=== PATIENT | male | born 1960 | race Caucasian/White ===

== ENCOUNTER → 2017-07-16 10:32 | Outpatient (POV) | payer OTHER, SELFPAY ==
[2017-07-16 10:49] VITALS: BP 122/80; PULSE 81; RESP 18; O2SAT 98; BMI 26.1
--- NOTE | 2017-07-16 11:44 | P.CONS_ITS ---
[facility] Pain Management SOAP Note Subjective:: This patient is a very pleasant 57-year-old white male that returns her pain clinic today for follow-up visit. Patient reporting his lumbar back pain is 75 % better. He is describing some low back pain that is centrally located without radiculopathy symptoms. He describes the pain is slight, dull, aching. Patient reports the pain intensifies with flexion and extension. However, patient reports pain is much better than prior to the lumbar injections. We discussed a repeat of the lumbar medial branch blocks at some points month. This will be 3-4 months post radiofrequency ablation. He agrees. Patient continues taking Celebrex 100 mg daily. Objective:: She is awake alert oriented ?3. In no acute distress. Flexion extension lumbar spine somewhat guarded secondary to pain. Deep tendon reflexes upper and lower extremities normal. Motor strength upper and lower extremities normal. There is no gross sensory deficit. Gait is normal Assessment:: Degenerative disc disease lumbar spine with levels. Lumbar facet arthropathy. Lumbar spondylosis. Plan:: No changes at this time. He will continue with Celebrex 100 mg daily. We will seek approval for lumbar medial branch block L3-4, L4-5, L5-S1 bilateral some time next month
== END ==
PROVIDERS: PCP Family Medicine; Visit Provider Nurse Anesthetist, Certified Registered
DX: M51.16 Intervertebral disc disorders with radiculopathy, lumbar region (principal)
CPT/HCPCS: 99212

== ENCOUNTER → 2017-08-10 09:28 | Day surgery (SDC) | payer OTHER, SELFPAY ==
[2017-08-10 09:32] VITALS: BP 116/85; PULSE 80; RESP 18; TEMP 36.4; O2SAT 100; BMI 25.5
[2017-08-10 10:10] VITALS: BP 135/85; PULSE 78; RESP 18; O2SAT 98
--- NOTE | 2017-08-10 10:11 | P.PCN_ITS ---
- Procedure Date: 08/10/17 Time: 10:08 Anesthesiologist:: Tyler Shetty MD Complications:: None Pre-procedure Diagnosis:: Degenerative disease of lumbar spine with lumbar spondylosis and facet arthropathy Post-procedure Diagnosis:: Same Indications for Procedure:: This patient is a pleasant 57-year-old white male who we are treating for low back pain with lumbar spondylosis. He has had several medial branch blocks and a previous RFA. His pain is started to return his low back. We will do bilateral lumbar medial branch blocks of L3-L4, L4-5 and L5-S1 today to see if this gives him additional pain relief. Procedure Details:: Lumbar medial branch block Informed consent was obtained and the risks and benefits of the procedure was explained to the patient. The back was prepped using ChloraPrep. The skin and subcutaneous tissues were anesthetized using lidocaine. I placed 22-gauge spinal needles into the facet joint/medial branches of L3-L4, L4-L5 and L5-S1 bilaterally. Needle placement was confirmed with dye. After this we injected 3 mL bupivacaine 0.25% and Depo-Medrol 13 mg into each facet joint/medial branch of L3-L4, L5 and L5-S1 bilaterally. We used a total of 80 mg Depo- Medrol for all 3 levels bilaterally. The patient tolerated the procedure well with no complications. Plan and Disposition:: We will follow-up with this patient in 2 weeks. We will reevaluate his symptoms at that time. I do believe he may be a candidate for intrathecal therapy to give him long-term pain relief so he can adequately function at work.
[2017-08-10 10:13] VITALS: BP 140/90; PULSE 78; RESP 20; O2SAT 98
[2017-08-10 10:22] VITALS: BP 113/82; PULSE 71; RESP 18; TEMP 36.4; O2SAT 100
== END ==
PROVIDERS: Family Provider Family Medicine; PCP Family Medicine; Visit Provider Anesthesiology
DX: M51.36 Other intervertebral disc degeneration, lumbar region (principal); M47.896 Other spondylosis, lumbar region; M54.06 Panniculitis affecting regions of neck and back, lumbar region
CPT/HCPCS: 64493; 64494; 64495; J1030; Q9966

== ENCOUNTER → 2017-09-17 10:48 | Outpatient (POV) | payer OTHER, SELFPAY ==
[2017-09-17 10:55] VITALS: BP 118/79; PULSE 89; RESP 18; TEMP 36.6; O2SAT 98; BMI 26.6
--- NOTE | 2017-09-17 11:21 | HMH.PAINSOAP ---
[facility] Pain Management SOAP Note Subjective:: Patient is a pleasant 57-year-old white male who presents today for follow-up after his most recent medial branch block. Patient states he did receive 70% relief from his injections however his pain is beginning to return. Patient has tried multiple injective therapies along with ablations. Patient's tried anti-inflammatories and physical therapy. His pain a 6 out of 10 today. He states that the weather makes it worse. Patient is looking for more long-term solution to his pain. ROS General: no recent weight change, no fever, no sleep disturbances Respiratory: no cough, no shortness of air, no recurring pulmonary infections Cardiovascular/Peripheral Vascular: No chest pain, No palpitations, no edema, no shortness of breath. Gastrointestinal: no incontinence, normal bowel movements reported Genitourinary: no incontinence Musculoskeletal: Back pain, bilateral leg pain Psychiatric: normal mood/ affect, [denies depression], [denies anxiety] Neurological: [denies weakness in extremities], [denies balance issues] Objective:: Physical Exam General: Alert and oriented x3, no acute distress, pleasant and cooperative, [on room air] Lungs: Resps E/U, Symmetrical chest expansion, Eyes: PERRL Musculoskeletal: Flexion and extension of lumbar spine somewhat guarded secondary to pain, deep tendon reflexes normal, strength in upper and lower extremities [5/5], [abnormal gait noted] Neurological: speech clear, dictating machine typist equal, no gross sensory deficits Assessment:: Degenerative disc disease of the lumbar spine with lumbar spondylosis and facet arthropathy Plan:: The patient and I had a long discussion about intrathecal therapies. I believe that this patient would be a good candidate for pain pump trial. We discussed the need for a psychological evaluation. We also discussed the trial and implantation process. I answered the patient's questions. I want to see him back in 1 month to answer any additional questions. If he feels like he would like to move forward with this he can call our office and have a psychological evaluation referral sent. This note was dictated using voice recognition software and may contain errors or omissions
--- NOTE | 2017-09-17 11:25 | P.CONS_ITS ---
[facility] Pain Management SOAP Note Subjective:: Patient is a pleasant 57-year-old white male who presents today for follow-up after his most recent medial branch block. Patient states he did receive 70% relief from his injections however his pain is beginning to return. Patient has tried multiple injective therapies along with ablations. Patient's tried anti-inflammatories and physical therapy. His pain a 6 out of 10 today. He states that the weather makes it worse. Patient is looking for more long-term solution to his pain. ROS General: no recent weight change, no fever, no sleep disturbances Respiratory: no cough, no shortness of air, no recurring pulmonary infections Cardiovascular/Peripheral Vascular: No chest pain, No palpitations, no edema, no shortness of breath. Gastrointestinal: no incontinence, normal bowel movements reported Genitourinary: no incontinence Musculoskeletal: Back pain, bilateral leg pain Psychiatric: normal mood/ affect, [denies depression], [denies anxiety] Neurological: [denies weakness in extremities], [denies balance issues] Objective:: Physical Exam General: Alert and oriented x3, no acute distress, pleasant and cooperative, [ on room air] Lungs: Resps E/U, Symmetrical chest expansion, Eyes: PERRL Musculoskeletal: Flexion and extension of lumbar spine somewhat guarded secondary to pain, deep tendon reflexes normal, strength in upper and lower extremities [5/5], [abnormal gait noted] Neurological: speech clear, blow down operator equal, no gross sensory deficits Assessment:: Degenerative disc disease of the lumbar spine with lumbar spondylosis and facet arthropathy Plan:: The patient and I had a long discussion about intrathecal therapies. I believe that this patient would be a good candidate for pain pump trial. We discussed the need for a psychological evaluation. We also discussed the trial and implantation process. I answered the patient's questions. I want to see him back in 1 month to answer any additional questions. If he feels like he would like to move forward with this he can call our office and have a psychological evaluation referral sent. This note was dictated using voice recognition software and may contain errors or omissions
== END ==
PROVIDERS: Family Provider Family Medicine; PCP Family Medicine; Visit Provider Clinical Nurse Specialist Family Health
DX: M47.816 Spondylosis without myelopathy or radiculopathy, lumbar region (principal)
CPT/HCPCS: 99212

== ENCOUNTER → 2017-11-05 09:11 | Outpatient (POV) | payer OTHER, SELFPAY ==
[2017-11-05 09:36] VITALS: BP 122/81; PULSE 72; RESP 18; TEMP 36.8; BMI 25.8
--- NOTE | 2017-11-05 10:04 | HMH.PAINSOAP ---
[facility] Pain Management SOAP Note Subjective:: This patient is a pleasant 57-year-old white male who we are treating for low back pain with lumbar spondylosis and some lumbar radicular symptoms. He has had medial branch blocks and other injections. Injections are giving him good relief however is temporary. There are not long-lasting. He continues to have pain every day which is now limiting his activities of daily life. He is currently on Celebrex again was not helping. His last round of medial branch blocks gave him good relief for a short period of time. Most of his pain is in the back with occasional pain down his legs. He is failed all conservative therapy including injections and oral medications. He is not a surgical candidate. I believe he would be a good candidate for intrathecal therapy. I talked to him about intrathecal pump trial. I explained the risk and benefits and answered all questions. We will seek approval for intrathecal pump trial. Objective:: Alert and oriented ?3 in no acute distress. Patient has an antalgic gait. Motor strength of the lower extremities is 5/5. There is no gross sensory deficit. Assessment:: Degenerative disc disease of lumbar spine with lumbar spondylosis and lumbar radiculopathy symptoms. Plan:: This patient has failed all conservative therapy including injections now which are not long-lasting and oral medications. He has pain every day which is now limiting his activities of daily living. We will seek approval for intrathecal pump trial. I believe this will be a long-lasting treatment option to help with his pain management and allow increased activity.
== END ==
PROVIDERS: Family Provider Family Medicine; PCP Family Medicine; Visit Provider Anesthesiology
DX: M47.26 Other spondylosis with radiculopathy, lumbar region (principal)
CPT/HCPCS: 99212

== ENCOUNTER → 2017-12-24 14:36 | Outpatient (POV) | payer OTHER, SELFPAY ==
[2017-12-24 15:03] VITALS: BP 111/77; PULSE 74; RESP 18; O2SAT 98; BMI 25.8
--- NOTE | 2017-12-24 16:07 | HMH.PAINSOAP ---
[facility] Pain Management SOAP Note Subjective:: Patient is a pleasant 57-year-old white male who presents today for follow-up. Patient was set up for an intrathecal pain pump trial however patient states he does not believe he is ready for this at this time. Patient would like to continue with receiving medial branch blocks and taking his Duexis. Patient states he is doing all right with this at this time. Patient is not a surgical candidate and I still believe he would be a good candidate for intrathecal therapy. I answered his questions. Patient may be a candidate in the future. Patient states most of his pain is in his low back. ROS General: no recent weight change, no fever, no sleep disturbances Respiratory: no cough, no shortness of air, no recurring pulmonary infections Cardiovascular/Peripheral Vascular: No chest pain, No palpitations, no edema, no shortness of breath. Gastrointestinal: no incontinence, normal bowel movements reported Genitourinary: no incontinence Musculoskeletal: Back pain Psychiatric: normal mood/ affect Neurological: [denies weakness in extremities], [denies balance issues] Objective:: Physical Exam General: Alert and oriented x3, no acute distress, pleasant and cooperative, [on room air] Lungs: Resps E/U, Symmetrical chest expansion, Eyes: PERRL Musculoskeletal: Flexion and extension of lumbar spine somewhat guarded secondary to pain, deep tendon reflexes normal, strength in upper and lower extremities [5/5], antalgic gait noted, positive Kemps test lumbar spine Neurological: speech clear, sorting supervisor equal, no gross sensory deficits Assessment:: Degenerative disc disease of the lumbar spine with lumbar spondylosis and lumbar radiculopathy symptoms Plan:: We will schedule medial branch block at L3-L4 L4-L5 L5-S1 bilaterally. Patient states he gets 80 and 90% relief with these injections. Patient can continue taking his anti-inflammatories. Again I believe he still is a good candidate for intrathecal therapy in the future. This note was dictated using voice recognition software and may contain errors or omissions
--- NOTE | 2017-12-24 16:10 | P.CONS_ITS ---
[facility] Pain Management SOAP Note Subjective:: Patient is a pleasant 57-year-old white male who presents today for follow-up. Patient was set up for an intrathecal pain pump trial however patient states he does not believe he is ready for this at this time. Patient would like to continue with receiving medial branch blocks and taking his Duexis. Patient states he is doing all right with this at this time. Patient is not a surgical candidate and I still believe he would be a good candidate for intrathecal therapy. I answered his questions. Patient may be a candidate in the future. Patient states most of his pain is in his low back. ROS General: no recent weight change, no fever, no sleep disturbances Respiratory: no cough, no shortness of air, no recurring pulmonary infections Cardiovascular/Peripheral Vascular: No chest pain, No palpitations, no edema, no shortness of breath. Gastrointestinal: no incontinence, normal bowel movements reported Genitourinary: no incontinence Musculoskeletal: Back pain Psychiatric: normal mood/ affect Neurological: [denies weakness in extremities], [denies balance issues] Objective:: Physical Exam General: Alert and oriented x3, no acute distress, pleasant and cooperative, [ on room air] Lungs: Resps E/U, Symmetrical chest expansion, Eyes: PERRL Musculoskeletal: Flexion and extension of lumbar spine somewhat guarded secondary to pain, deep tendon reflexes normal, strength in upper and lower extremities [5/5], antalgic gait noted, positive Kemps test lumbar spine Neurological: speech clear, bituminous paving machine operator equal, no gross sensory deficits Assessment:: Degenerative disc disease of the lumbar spine with lumbar spondylosis and lumbar radiculopathy symptoms Plan:: We will schedule medial branch block at L3-L4 L4-L5 L5-S1 bilaterally. Patient states he gets 80 and 90% relief with these injections. Patient can continue taking his anti-inflammatories. Again I believe he still is a good candidate for intrathecal therapy in the future. This note was dictated using voice recognition software and may contain errors or omissions
== END ==
PROVIDERS: Family Provider Family Medicine; PCP Family Medicine; Visit Provider Clinical Nurse Specialist Family Health
DX: M54.16 Radiculopathy, lumbar region (principal)
CPT/HCPCS: 99212

== ENCOUNTER → 2018-02-04 10:24 | Outpatient (POV) | payer OTHER, SELFPAY ==
[2018-02-04 10:47] VITALS: BP 111/67; PULSE 78; RESP 18; O2SAT 98; BMI 25.9
--- NOTE | 2018-02-04 11:05 | HMH.PAINSOAP ---
[facility] Pain Management SOAP Note Subjective:: Patient is a pleasant 57-year-old white male who presents today to discuss intrathecal pain pump trial. Patient at last visit did not feel like he was ready for this. Patient did go through medial branch block however he states that he feels that he is ready now. Patient rates his pain 8 out of 10. I gave the patient the option of doing the intrathecal pain pump trial this Sunday however he has a trip planned. We will set him up for the next available time. Patient has most of his pain in his back. ROS General: no recent weight change, no fever, no sleep disturbances Respiratory: no cough, no shortness of air, no recurring pulmonary infections Cardiovascular/Peripheral Vascular: No chest pain, No palpitations, no edema, no shortness of breath. Gastrointestinal: no incontinence, normal bowel movements reported Genitourinary: no incontinence Musculoskeletal: Back pain Psychiatric: normal mood/ affect Neurological: [denies weakness in extremities], [denies balance issues] Objective:: Physical Exam General: Alert and oriented x3, no acute distress, pleasant and cooperative, [on room air] Lungs: Resps E/U, Symmetrical chest expansion, Eyes: PERRL Musculoskeletal: Flexion and extension of lumbar spine somewhat guarded secondary to pain, deep tendon reflexes normal, strength in upper and lower extremities [5/5], antalgic gait noted Neurological: speech clear, category development analyst equal, no gross sensory deficits Assessment:: Degenerative disc disease lumbar spine with lumbar spondylosis and lumbar radiculopathy symptoms Plan:: She has some concerns in regards to how big the intrathecal pain pump is. I discussed with him that he may find it beneficial to have the trial prior to making a decision. Patient will move forward with an intrathecal pain pump trial. This note was dictated using voice recognition software and may contain errors or omissions
--- NOTE | 2018-02-04 11:09 | P.CONS_ITS ---
[facility] Pain Management SOAP Note Subjective:: Patient is a pleasant 57-year-old white male who presents today to discuss intrathecal pain pump trial. Patient at last visit did not feel like he was ready for this. Patient did go through medial branch block however he states that he feels that he is ready now. Patient rates his pain 8 out of 10. I gave the patient the option of doing the intrathecal pain pump trial this Sunday however he has a trip planned. We will set him up for the next available time. Patient has most of his pain in his back. ROS General: no recent weight change, no fever, no sleep disturbances Respiratory: no cough, no shortness of air, no recurring pulmonary infections Cardiovascular/Peripheral Vascular: No chest pain, No palpitations, no edema, no shortness of breath. Gastrointestinal: no incontinence, normal bowel movements reported Genitourinary: no incontinence Musculoskeletal: Back pain Psychiatric: normal mood/ affect Neurological: [denies weakness in extremities], [denies balance issues] Objective:: Physical Exam General: Alert and oriented x3, no acute distress, pleasant and cooperative, [ on room air] Lungs: Resps E/U, Symmetrical chest expansion, Eyes: PERRL Musculoskeletal: Flexion and extension of lumbar spine somewhat guarded secondary to pain, deep tendon reflexes normal, strength in upper and lower extremities [5/5], antalgic gait noted Neurological: speech clear, cloth bolt bander equal, no gross sensory deficits Assessment:: Degenerative disc disease lumbar spine with lumbar spondylosis and lumbar radiculopathy symptoms Plan:: She has some concerns in regards to how big the intrathecal pain pump is. I discussed with him that he may find it beneficial to have the trial prior to making a decision. Patient will move forward with an intrathecal pain pump trial. This note was dictated using voice recognition software and may contain errors or omissions
== END ==
PROVIDERS: Family Provider Family Medicine; PCP Family Medicine; Visit Provider Clinical Nurse Specialist Family Health
DX: M51.16 Intervertebral disc disorders with radiculopathy, lumbar region (principal); M47.896 Other spondylosis, lumbar region
CPT/HCPCS: 99212

== ENCOUNTER → 2018-02-08 10:33 | Outpatient (POV) | payer MEDICARE, SELFPAY ==
[2018-02-08 10:55] VITALS: BP 143/90; PULSE 70; RESP 18; O2SAT 98; BMI 28.7
--- NOTE | 2018-02-08 11:38 | P.CONS_ITS ---
[facility] Pain Management SOAP Note Subjective:: This patient is a pleasant 57-year-old white male who we are treating for low back pain with lumbar radiculopathy symptoms as well as neck pain with cervical radiculopathy symptoms. Both of these are from the same injury at work according to the patient. He recently went to the emergency room with fevers. He had a urine culture which was positive for gram-positive cocci. He also had blood cultures taken at that time which are pending. He was told by the emergency room physician that this may be drug-induced fevers. I suspect he may also have a urinary tract infection. We will have him follow-up with his primary care physician. He has had previous medial branch blocks which gave him good pain relief for 3 weeks. He has had a previous radiofrequency ablation which gave him pain relief for approximately 6 weeks. We have discussed intrathecal therapy. The patient is not interested in pursuing intrathecal therapy at this time. His pain pattern has changed significantly where now he is having cramping and drawing of his left hand and arm. He also has significant pain radiating down his right leg with some weakness and numbness. His last MRI was 2 years ago. I feel that it is prudent to order new MRIs of his cervical lumbar spine to discern any change in pathology. We have also talked about revisiting neurosurgical consultation. We will also get him a back brace to help him with his pain symptoms. I have told him to stop ibuprofen and only take Tylenol to help with pain. Objective:: Alert and oriented ?3 in no acute distress. Patient does have an antalgic gait. Motor strength of the upper and lower extremities is 5/5. There is no gross sensory deficit at this time. He does have tenderness in the midline of the cervical spine and lumbar spine. He does have reduced range of motion of the cervical spine and lumbar spine. Assessment:: Degenerative disc disease of the cervical spine with cervical radiculopathy symptoms. Degenerative disc of lumbar spine with lumbar radiculopathy symptoms and lumbar spondylosis. Plan:: We will have this patient follow-up with his primary care physician concerning his blood cultures and urine culture. We will also order a new MRI of the cervical spine since this is been 2 years since his previous imaging and he has a change in symptoms with drawing of his left arm and hand and numbness and tingling with some occasional weakness down his right leg. We will also have him only take Tylenol to help with pain symptoms and stop his ibuprofen at this time. We will follow-up with him after his MRI.
== END ==
PROVIDERS: Family Provider Family Medicine; PCP Family Medicine; Visit Provider Anesthesiology
DX: M50.10 Cervical disc disorder with radiculopathy, unspecified cervical region (principal); M51.16 Intervertebral disc disorders with radiculopathy, lumbar region; M47.896 Other spondylosis, lumbar region
CPT/HCPCS: 99212

== ENCOUNTER → 2018-02-21 08:37 | Outpatient (CLI) | payer OTHER, SELFPAY ==
--- NOTE | 2018-02-21 08:39 | MR_ITS ---
MR lumbar spine wo con, MR 3-d myelogram/MRCP HISTORY: Low back pain with bilateral leg pain, numbness and tingling. PT also states left side pain. No prior surgery. ITS.REASON: BACK PAIN ORDERING PHYSICIAN: Telma Abdi PATIENT AGE: 57 years Comparison: 09/22/2015 TECHNIQUE: Standard multiplanar multiecho sequences are performed without contrast. 3-D MIP and myelographic images are also rendered and reviewed FINDINGS: There is normal alignment. Spinal cord ends at the L1 level. L1-L2 and L2-L3 have an unremarkable appearance. L3-L4: Minimal facet and ligamentum flavum hypertrophy L4-5: There is mild concentric bulging disc with a small left paracentral disc protrusion abutting the anterior aspect of the left L5 nerve root similar to the previous exam with left lateral recess narrowing and mild disc desiccation at that level. L5-S1: Mild degenerative disc disease with bulging disc and minimal central left paracentral disc protrusion without impingement. IMPRESSION: Overall no significant change in the mild degenerative disc disease and bulging disc with paracentral disc protrusions as described above at L4-5 and L5-S1. There is some mild impingement upon the left L5 nerve root at the L4-L5 level which does not appear significantly changed. No new findings
== END ==
PROVIDERS: Family Provider Family Medicine; PCP Family Medicine; Visit Provider Clinical Nurse Specialist Family Health
DX: M54.5 Low back pain (principal)
CPT/HCPCS: 72148; 76376

== ENCOUNTER → 2018-03-01 12:54 | Outpatient (POV) | payer MEDICARE, OTHER, SELFPAY ==
[2018-03-01 13:17] VITALS: BP 122/74; PULSE 76; RESP 18; O2SAT 96; BMI 25.7
--- NOTE | 2018-03-01 13:47 | HMH.PAINSOAP ---
[facility] Pain Management SOAP Note Subjective:: This patient is a pleasant 57-year-old white male who we have been seeing for low back pain with lumbar radicular symptoms as well as neck pain with cervical radicular symptoms. He is undergone several injections including epidural steroid injections and medial blocks. He has increasing low back pain with bilateral leg pain. He did get a new MRI of his lumbar spine which shows degenerative changes with paracentral disc protrusions at L4-L5 and L5-S1. There is some mild impingement upon the left L5 nerve root. This was overall not significantly change in his previous MRIs. Given his symptomology and the fact that he is failed all conservative treatment including physical therapy, medications and injections we have talked about other options including intrathecal therapy and spinal cord stimulation. The patient is not interested in intrathecal therapy however his does have a Nevro spinal cord stimulator. Would be interested in looking at spinal cord stimulation as a option to help him with his pain symptoms. Objective:: Alert and oriented x3 in no acute distress. The patient does have an antalgic gait. Motor strength of the lower extremities is 5/5. There is no gross sensory deficit. Assessment:: Degenerative disc disease of lumbar spine with lumbar radiculopathy symptoms and bulging disc Plan:: I have explained the risk and benefits and talked to the patient extensively about spinal cord stimulation. We will seek approval and plan on spinal cord stimulator trial with a Nevro system.
== END ==
PROVIDERS: Family Provider Family Medicine; PCP Family Medicine; Visit Provider Anesthesiology
DX: M51.16 Intervertebral disc disorders with radiculopathy, lumbar region (principal)
CPT/HCPCS: 99212

== ENCOUNTER → 2018-03-26 10:48 | Outpatient (POV) | payer OTHER, SELFPAY ==
[2018-03-26 10:57] VITALS: BP 110/68; PULSE 85; RESP 18; TEMP 36.7; O2SAT 97; BMI 26.6
--- NOTE | 2018-03-26 12:05 | HMH.PAINSOAP ---
[facility] Pain Management SOAP Note Subjective:: Patient is a 57-year-old white male who presents today for a mid trial follow-up for his neurostimulator. Patient states that during his trial he is having 60-80% relief of his symptoms. Patient is interested in going into implant. Patient states that he is much more functional with the stimulator. Patient states he needs no reprogramming today. ROS General: no recent weight change, no fever, no sleep disturbances Respiratory: no cough, no shortness of air, no recurring pulmonary infections Cardiovascular/Peripheral Vascular: No chest pain, No palpitations, no edema, no shortness of breath. Gastrointestinal: no incontinence, normal bowel movements reported Genitourinary: no incontinence Musculoskeletal: Back pain, leg pain Psychiatric: normal mood/ affect Neurological: [denies weakness in extremities], [denies balance issues] Objective:: Physical Exam General: Alert and oriented x3, no acute distress, pleasant and cooperative, [on room air] Lungs: Resps E/U, Symmetrical chest expansion, Eyes: PERRL Musculoskeletal: Flexion and extension of lumbar spine somewhat guarded secondary to pain, deep tendon reflexes normal, strength in upper and lower extremities [5/5], slightly antalgic gait noted Neurological: speech clear, fern gatherer equal, no gross sensory deficits Assessment:: Degenerative disc disease lumbar spine with lumbar radiculopathy Plan:: We will plan on moving towards an permanent trial for the patient. Patient denies any fevers. Patient states he is taking his Bactrim. Patient stimulator entrance site is under tape however there is no drainage noted. I will follow-up with the patient after his implant. This note was dictated using voice recognition software and may contain errors or omissions
--- NOTE | 2018-03-26 12:08 | P.CONS_ITS ---
[facility] Pain Management SOAP Note Subjective:: Patient is a 57-year-old white male who presents today for a mid trial follow-up for his neurostimulator. Patient states that during his trial he is having 60- 80% relief of his symptoms. Patient is interested in going into implant. Patient states that he is much more functional with the stimulator. Patient states he needs no reprogramming today. ROS General: no recent weight change, no fever, no sleep disturbances Respiratory: no cough, no shortness of air, no recurring pulmonary infections Cardiovascular/Peripheral Vascular: No chest pain, No palpitations, no edema, no shortness of breath. Gastrointestinal: no incontinence, normal bowel movements reported Genitourinary: no incontinence Musculoskeletal: Back pain, leg pain Psychiatric: normal mood/ affect Neurological: [denies weakness in extremities], [denies balance issues] Objective:: Physical Exam General: Alert and oriented x3, no acute distress, pleasant and cooperative, [on room air] Lungs: Resps E/U, Symmetrical chest expansion, Eyes: PERRL Musculoskeletal: Flexion and extension of lumbar spine somewhat guarded secondary to pain, deep tendon reflexes normal, strength in upper and lower extremities [5/5], slightly antalgic gait noted Neurological: speech clear, meat stocker equal, no gross sensory deficits Assessment:: Degenerative disc disease lumbar spine with lumbar radiculopathy Plan:: We will plan on moving towards an permanent trial for the patient. Patient denies any fevers. Patient states he is taking his Bactrim. Patient stimulator entrance site is under tape however there is no drainage noted. I will follow- up with the patient after his implant. This note was dictated using voice recognition software and may contain errors or omissions
== END ==
PROVIDERS: Family Provider Family Medicine; PCP Family Medicine; Visit Provider Clinical Nurse Specialist Family Health
DX: M51.16 Intervertebral disc disorders with radiculopathy, lumbar region (principal)
CPT/HCPCS: 99213

== ENCOUNTER → 2018-04-22 13:38 | Outpatient (POV) | payer OTHER, SELFPAY ==
[2018-04-22 14:14] VITALS: BP 125/79; PULSE 86; RESP 18; O2SAT 98; BMI 25.1
--- NOTE | 2018-04-23 08:40 | P.CONS_ITS ---
[facility] Pain Management SOAP Note Subjective:: Patient is a pleasant 57-year-old white male who presents today for follow-up after his neurostimulator implant. Patient rates his pain a 2 out of 10. Patient states that he gets up to 80% relief of his pain however he states he feels like he needs an adjustment. Patient has been doing well. Patient stitches are removed. Patient has no sign symptoms of infection. ROS General: no recent weight change, no fever, no sleep disturbances Respiratory: no cough, no shortness of air, no recurring pulmonary infections Cardiovascular/Peripheral Vascular: No chest pain, No palpitations, no edema, no shortness of breath. Gastrointestinal: no incontinence, normal bowel movements reported Genitourinary: no incontinence Musculoskeletal: Back pain, leg pain Psychiatric: normal mood/ affect Neurological: [denies weakness in extremities], [denies balance issues] Objective:: Physical Exam General: Alert and oriented x3, no acute distress, pleasant and cooperative, [on room air] Lungs: Resps E/U, Symmetrical chest expansion, Eyes: PERRL Musculoskeletal: Flexion and extension of lumbar spine somewhat guarded secondary to pain, deep tendon reflexes normal, strength in upper and lower extremities [5/5], normal gait noted Neurological: speech clear, health care analyst equal, no gross sensory deficits Assessment:: Degenerative disc disease lumbar spine with lumbar radiculopathy Plan:: We will follow-up with the patient in 1 month and reassess his symptoms at that time. Patient's been instructed to call the office if he has any issues prior to his next appointment. This note was dictated using voice recognition software and may contain errors or omissions
== END ==
PROVIDERS: Family Provider Family Medicine; PCP Family Medicine; Visit Provider Clinical Nurse Specialist Family Health
DX: M51.16 Intervertebral disc disorders with radiculopathy, lumbar region (principal)
CPT/HCPCS: 99213

== ENCOUNTER → 2018-05-27 10:43 | Outpatient (POV) | payer OTHER, SELFPAY ==
[2018-05-27 11:29] VITALS: BP 114/73; PULSE 94; RESP 18; O2SAT 98; BMI 31.3
--- NOTE | 2018-05-27 11:43 | HMH.PAINSOAP ---
[facility] Pain Management SOAP Note Subjective:: Patient is a pleasant 58-year-old white male who presents today for follow-up after neurostimulator implant. Patient rates his pain a 2 out of 10 and is doing well. Patient is completely healed. Patient states that he gets up to 80% relief with his stimulator. ROS General: no recent weight change, no fever, no sleep disturbances Respiratory: no cough, no shortness of air, no recurring pulmonary infections Cardiovascular/Peripheral Vascular: No chest pain, No palpitations, no edema, no shortness of breath. Gastrointestinal: no incontinence, normal bowel movements reported Genitourinary: no incontinence Musculoskeletal: Back pain, leg pain Psychiatric: normal mood/ affect Neurological: [denies weakness in extremities], [denies balance issues] Objective:: Physical Exam General: Alert and oriented x3, no acute distress, pleasant and cooperative, [on room air] Lungs: Resps E/U, Symmetrical chest expansion, Eyes: PERRL Musculoskeletal: Flexion and extension of lumbar spine somewhat guarded secondary to pain, deep tendon reflexes normal, strength in upper and lower extremities [5/5], normal gait noted Neurological: speech clear, rehab liaison equal, no gross sensory deficits Assessment:: Degenerative disc disease lumbar spine with lumbar radiculopathy Plan:: We will follow-up with the patient in 6 months and reassess his symptoms at that time. Patient has been instructed to call the office if he has any issues prior to this. This note was dictated using voice recognition software and may contain errors or omissions
== END ==
PROVIDERS: PCP Family Medicine; Visit Provider Clinical Nurse Specialist Family Health
DX: M51.16 Intervertebral disc disorders with radiculopathy, lumbar region (principal)
CPT/HCPCS: 99213

== ENCOUNTER → 2018-11-26 10:02 | Outpatient (POV) | payer OTHER, SELFPAY ==
[2018-11-26 10:33] VITALS: BP 130/84; PULSE 81; RESP 18; O2SAT 98; BMI 25.1
--- NOTE | 2018-11-26 10:44 | HMH.PAINSOAP ---
[facility] Pain Management SOAP Note Subjective:: Patient is a pleasant 58-year-old male who presents today for six-month follow-up. Patient rates his pain a 2 out of 10 and is doing well today we will follow-up with him in 6 months. ROS General: no recent weight change, no fever, no sleep disturbances Respiratory: no cough, no shortness of air, no recurring pulmonary infections Cardiovascular/Peripheral Vascular: No chest pain, No palpitations, no edema, no shortness of breath. Gastrointestinal: no incontinence, normal bowel movements reported Genitourinary: no incontinence Musculoskeletal: [Back pain, leg pain] Psychiatric: normal mood/ affect, [denies depression], [denies anxiety] Neurological: [denies weakness in extremities], [denies balance issues] Objective:: Physical Exam General: Alert and oriented x3, no acute distress, pleasant and cooperative, [on room air] Lungs: Resps E/U, Symmetrical chest expansion, Eyes: PERRL Musculoskeletal: Flexion and extension of lumbar spine somewhat guarded secondary to pain, deep tendon reflexes normal, strength in upper and lower extremities [5/5], normal gait noted. Neurological: speech clear, glost tile shader equal, no gross sensory deficits Assessment:: Degenerative disc disease lumbar spine with lumbar radiculopathy Plan:: We will follow-up with the patient in 6 months and reassess his symptoms at that time. Patient has been instructed to call the office if he has any issues prior to this. Dr. Shetty has reviewed this note and agrees with this plan of care. This note was dictated using voice recognition software and may contain errors or omissions
--- NOTE | 2018-11-26 10:48 | P.CONS_ITS ---
[facility] Pain Management SOAP Note Subjective:: Patient is a pleasant 58-year-old male who presents today for six-month follow- up. Patient rates his pain a 2 out of 10 and is doing well today we will follow-up with him in 6 months. ROS General: no recent weight change, no fever, no sleep disturbances Respiratory: no cough, no shortness of air, no recurring pulmonary infections Cardiovascular/Peripheral Vascular: No chest pain, No palpitations, no edema, no shortness of breath. Gastrointestinal: no incontinence, normal bowel movements reported Genitourinary: no incontinence Musculoskeletal: [Back pain, leg pain] Psychiatric: normal mood/ affect, [denies depression], [denies anxiety] Neurological: [denies weakness in extremities], [denies balance issues] Objective:: Physical Exam General: Alert and oriented x3, no acute distress, pleasant and cooperative, [on room air] Lungs: Resps E/U, Symmetrical chest expansion, Eyes: PERRL Musculoskeletal: Flexion and extension of lumbar spine somewhat guarded secondary to pain, deep tendon reflexes normal, strength in upper and lower extremities [5/5], normal gait noted. Neurological: speech clear, switch maker equal, no gross sensory deficits Assessment:: Degenerative disc disease lumbar spine with lumbar radiculopathy Plan:: We will follow-up with the patient in 6 months and reassess his symptoms at that time. Patient has been instructed to call the office if he has any issues prior to this. Dr. Shetty has reviewed this note and agrees with this plan of care. This note was dictated using voice recognition software and may contain errors or omissions
== END ==
PROVIDERS: Visit Provider Clinical Nurse Specialist Family Health
DX: M51.16 Intervertebral disc disorders with radiculopathy, lumbar region (principal)
CPT/HCPCS: 99212

== ENCOUNTER → 2019-04-22 09:01 | Outpatient (POV) | payer OTHER, SELFPAY ==
[2019-04-22 09:09] VITALS: BP 119/78; PULSE 87; RESP 18; O2SAT 99; BMI 25.1
--- NOTE | 2019-04-22 12:33 | HMH.PAINSOAP ---
[facility] Pain Management SOAP Note Subjective:: Patient is a 58-year-old white male who presents today for follow-up after removal of his neurostimulator by [facility]. Patient had his neurostimulator for over a year. Patient states that he had no issues until about 6 months postop. Patient states he had some swelling around the area that would come and go. Patient states that he was hospitalized for an infection. We did receive notes from [facility] all preliminary cultures were negative. We will continue to monitor this. He is not on antibiotics at this time. He has his last visit with infectious disease this month. Patient is uninterested in replanting a stimulator. He is uninterested in injection therapy at this point. Patient and I discussed medications. I discussed with him potentially a low-dose anti-inflammatory. ROS General: no recent weight change, no fever, no sleep disturbances Respiratory: no cough, no shortness of air, no recurring pulmonary infections Cardiovascular/Peripheral Vascular: No chest pain, No palpitations, no edema, no shortness of breath. Gastrointestinal: no new onset incontinence, normal bowel movements reported Genitourinary: no new onset incontinence Musculoskeletal: Back pain Psychiatric: normal mood/ affect Neurological: [denies new onset weakness in extremities], [denies new onset balance issues] Objective:: Physical Exam General: Alert and oriented x3, no acute distress, pleasant and cooperative, [on room air] Lungs: Resps E/U, Symmetrical chest expansion, Eyes: PERRL Musculoskeletal: Flexion and extension of lumbar spine somewhat guarded secondary to pain, deep tendon reflexes normal, strength in upper and lower extremities [5/5], slightly antalgic gait noted Neurological: speech clear, managing attorney equal, no gross sensory deficits Assessment:: Degenerative disc disease lumbar spine with lumbar radiculopathy Plan:: We will see the patient back in 1 month. We will start him on diclofenac 75 mg 1 p.o. twice daily. We will get the rest of the notes from [facility]. Dr. Shetty has reviewed this note and agrees with this plan of care. This note was dictated using voice recognition software and may contain errors or omissions [facility] History I have reviewed the patient's past medical history: Yes Medical History: Reports:: Gastroesophageal Reflux Disease(GERD), MRSA Denies:: Cancer, Diabetes Mellitus Type 1, Diabetes Mellitus Type 2, Internal Pacemaker, Seizures *Have you ever received a pneumonia vaccine?: No *Have you received a flu vaccine this season?: No Other Medical History: Denies: Blood Transfusion Reaction Laterality Cases: Left: Arthroscopy Knee, Right: Other Other Surgeries: Yes: Hernia Repair (inguinal). No: Pacemaker Amputation: No Fractures: No - *Social History Smoking Status: Former smoker Alcohol Intake: never *Occupational Status:: disabled Housing: house Household Members: spouse *Travel in the last 8 weeks: None Family Hx:: Cancer, Diabetes
--- NOTE | 2019-04-22 12:38 | P.CONS_ITS ---
[facility] Pain Management SOAP Note Subjective:: Patient is a 58-year-old white male who presents today for follow-up after removal of his neurostimulator by [facility]. Patient had his neurostimulator for over a year. Patient states that he had no issues until about 6 months postop. Patient states he had some swelling around the area that would come and go. Patient states that he was hospitalized for an infection. We did receive notes from [facility] all preliminary cultures were negative. We will continue to monitor this. He is not on antibiotics at this time. He has his last visit with infectious disease this month. Patient is uninterested in replanting a stimulator. He is uninterested in injection therapy at this point. Patient and I discussed medications. I discussed with him potentially a low-dose anti-inflammatory. ROS General: no recent weight change, no fever, no sleep disturbances Respiratory: no cough, no shortness of air, no recurring pulmonary infections Cardiovascular/Peripheral Vascular: No chest pain, No palpitations, no edema, no shortness of breath. Gastrointestinal: no new onset incontinence, normal bowel movements reported Genitourinary: no new onset incontinence Musculoskeletal: Back pain Psychiatric: normal mood/ affect Neurological: [denies new onset weakness in extremities], [denies new onset balance issues] Objective:: Physical Exam General: Alert and oriented x3, no acute distress, pleasant and cooperative, [on room air] Lungs: Resps E/U, Symmetrical chest expansion, Eyes: PERRL Musculoskeletal: Flexion and extension of lumbar spine somewhat guarded secondary to pain, deep tendon reflexes normal, strength in upper and lower extremities [5/5], slightly antalgic gait noted Neurological: speech clear, insurance defense paralegal equal, no gross sensory deficits Assessment:: Degenerative disc disease lumbar spine with lumbar radiculopathy Plan:: We will see the patient back in 1 month. We will start him on diclofenac 75 mg 1 p.o. twice daily. We will get the rest of the notes from [facility]. Dr. Shetty has reviewed this note and agrees with this plan of care. This note was dictated using voice recognition software and may contain errors or omissions [facility] History I have reviewed the patient's past medical history: Yes Medical History: Reports:: Gastroesophageal Reflux Disease(GERD), MRSA Denies:: Cancer, Diabetes Mellitus Type 1, Diabetes Mellitus Type 2, Internal Pacemaker, Seizures *Have you ever received a pneumonia vaccine?: No *Have you received a flu vaccine this season?: No Other Medical History: Denies: Blood Transfusion Reaction Laterality Cases: Left: Arthroscopy Knee, Right: Other Other Surgeries: Yes: Hernia Repair (inguinal). No: Pacemaker Amputation: No Fractures: No - *Social History Smoking Status: Former smoker Alcohol Intake: never *Occupational Status:: disabled Housing: house Household Members: spouse *Travel in the last 8 weeks: None Family Hx:: Cancer, Diabetes
== END ==
PROVIDERS: PCP Family Medicine; Visit Provider Clinical Nurse Specialist Family Health
DX: M51.16 Intervertebral disc disorders with radiculopathy, lumbar region (principal)
CPT/HCPCS: 99212

== ENCOUNTER → 2019-05-27 10:51 | Outpatient (POV) | payer OTHER, SELFPAY ==
[2019-05-27 10:59] VITALS: BP 95/72; PULSE 80; RESP 16; O2SAT 98; BMI 20.7
--- NOTE | 2019-05-27 11:39 | HMH.PAINSOAP ---
[facility] Pain Management SOAP Note Subjective:: Patient is a pleasant 59-year-old white male who presents today for follow-up. Patient had his neurostimulator removed. Patient states he is doing well rating his pain a 3 out of 10 he is having numbness and tingling in his toes. There is uninterested in any implantable devices however he would like to potentially begin him injections again. Patient is good to be seen by the infectious disease doctor tomorrow I discussed with him that we would need clearance prior to starting any kind injective therapy. Patient rates his pain today 3 out of 10 ROS General: no recent weight change, no fever, no sleep disturbances Respiratory: no cough, no shortness of air, no recurring pulmonary infections Cardiovascular/Peripheral Vascular: No chest pain, No palpitations, no edema, no shortness of breath. Gastrointestinal: no new onset incontinence, normal bowel movements reported Genitourinary: no new onset incontinence Musculoskeletal: Back pain, leg pain Psychiatric: normal mood/ affect, Neurological: [denies new onset weakness in extremities], [denies new onset balance issues] Objective:: Physical Exam General: Alert and oriented x3, no acute distress, pleasant and cooperative, [on room air] Lungs: Resps E/U, Symmetrical chest expansion, Eyes: PERRL Musculoskeletal: Flexion and extension of lumbar spine somewhat guarded secondary to pain, deep tendon reflexes normal, strength in upper and lower extremities [5/5], antalgic gait noted Neurological: speech clear, commercial construction project manager equal, no gross sensory deficits Assessment:: Degenerative disc disease lumbar spine with lumbar radiculopathy Plan:: We will get notes from Dr. Granados to determine the patient's clearance for injective therapy. The patient has been instructed to call our office if he would like to pursue injective therapy if he does we will set him up for an L4-L5 epidural injection. Dr. Shetty has reviewed this note and agrees with this plan of care. This note was dictated using voice recognition software and may contain errors or omissions [facility] History I have reviewed the patient's past medical history: Yes Medical History: Reports:: Gastroesophageal Reflux Disease(GERD), MRSA Denies:: Cancer, Diabetes Mellitus Type 1, Diabetes Mellitus Type 2, Internal Pacemaker, Seizures *Have you ever received a pneumonia vaccine?: No *Have you received a flu vaccine this season?: Yes Other Medical History: Denies: Blood Transfusion Reaction Laterality Cases: Left: Arthroscopy Knee, Right: Other Other Surgeries: Yes: Hernia Repair (inguinal). No: Pacemaker Amputation: No Fractures: No - *Social History Smoking Status: Former smoker Alcohol Intake: never *Occupational Status:: employed Housing: house Household Members: spouse *Travel in the last 8 weeks: None Family Hx:: Cancer, Diabetes
--- NOTE | 2019-05-27 11:42 | P.CONS_ITS ---
[facility] Pain Management SOAP Note Subjective:: Patient is a pleasant 59-year-old white male who presents today for follow-up. Patient had his neurostimulator removed. Patient states he is doing well rating his pain a 3 out of 10 he is having numbness and tingling in his toes. There is uninterested in any implantable devices however he would like to potentially begin him injections again. Patient is good to be seen by the infectious disease doctor tomorrow I discussed with him that we would need clearance prior to starting any kind injective therapy. Patient rates his pain today 3 out of 10 ROS General: no recent weight change, no fever, no sleep disturbances Respiratory: no cough, no shortness of air, no recurring pulmonary infections Cardiovascular/Peripheral Vascular: No chest pain, No palpitations, no edema, no shortness of breath. Gastrointestinal: no new onset incontinence, normal bowel movements reported Genitourinary: no new onset incontinence Musculoskeletal: Back pain, leg pain Psychiatric: normal mood/ affect, Neurological: [denies new onset weakness in extremities], [denies new onset balance issues] Objective:: Physical Exam General: Alert and oriented x3, no acute distress, pleasant and cooperative, [on room air] Lungs: Resps E/U, Symmetrical chest expansion, Eyes: PERRL Musculoskeletal: Flexion and extension of lumbar spine somewhat guarded secondary to pain, deep tendon reflexes normal, strength in upper and lower extremities [5/5], antalgic gait noted Neurological: speech clear, state fire marshal equal, no gross sensory deficits Assessment:: Degenerative disc disease lumbar spine with lumbar radiculopathy Plan:: We will get notes from Dr. Granados to determine the patient's clearance for injective therapy. The patient has been instructed to call our office if he would like to pursue injective therapy if he does we will set him up for an L4- L5 epidural injection. Dr. Shetty has reviewed this note and agrees with this plan of care. This note was dictated using voice recognition software and may contain errors or omissions [facility] History I have reviewed the patient's past medical history: Yes Medical History: Reports:: Gastroesophageal Reflux Disease(GERD), MRSA Denies:: Cancer, Diabetes Mellitus Type 1, Diabetes Mellitus Type 2, Internal Pacemaker, Seizures *Have you ever received a pneumonia vaccine?: No *Have you received a flu vaccine this season?: Yes Other Medical History: Denies: Blood Transfusion Reaction Laterality Cases: Left: Arthroscopy Knee, Right: Other Other Surgeries: Yes: Hernia Repair (inguinal). No: Pacemaker Amputation: No Fractures: No - *Social History Smoking Status: Former smoker Alcohol Intake: never *Occupational Status:: employed Housing: house Household Members: spouse *Travel in the last 8 weeks: None Family Hx:: Cancer, Diabetes
== END ==
PROVIDERS: PCP Family Medicine; Visit Provider Clinical Nurse Specialist Family Health
DX: M51.16 Intervertebral disc disorders with radiculopathy, lumbar region (principal)
CPT/HCPCS: 99212

== ENCOUNTER → 2019-11-17 14:51 | Outpatient (POV) | payer OTHER, SELFPAY ==
[2019-11-17 15:31] VITALS: BP 114/68; PULSE 81; RESP 18; TEMP 36.8; O2SAT 98; BMI 26.4
--- NOTE | 2019-11-18 08:32 | HMH.PAINSOAP ---
[facility] Pain Management SOAP Note Subjective:: Patient is a 59-year-old white male who presents today for follow-up. Patient has a neurostimulator removed. Patient states he is beginning to hurt worse in his lower back. He rates his pain a 4 out of 10. Patient is uninterested in having any additional neuro stimulation placed. Patient was cleared by his infectious disease doctor. Patient would like to move forward with injective therapy again. Patient had good relief with RFA's and medial branch blocks. Patient would like to repeat this. Most the patient's pain is in his low back and focal in nature. He has difficulty with twisting movements. Patient has been taking anti-inflammatories with no relief. ROS General: no recent weight change, no fever, no sleep disturbances Respiratory: no cough, no shortness of air, no recurring pulmonary infections Cardiovascular/Peripheral Vascular: No chest pain, No palpitations, no edema, no shortness of breath. Gastrointestinal: no new onset incontinence, normal bowel movements reported Genitourinary: no new onset incontinence Musculoskeletal: Back pain Psychiatric: normal mood/ affect Neurological: [denies new onset weakness in extremities], [denies new onset balance issues] Objective:: Physical Exam General: Alert and oriented x3, no acute distress, pleasant and cooperative, [on room air] Lungs: Resps E/U, Symmetrical chest expansion, Eyes: PERRL Musculoskeletal: Flexion and extension of lumbar spine somewhat guarded secondary to pain, deep tendon reflexes normal, strength in upper and lower extremities [5/5], slightly antalgic gait noted Neurological: speech clear, renewals specialist equal, no gross sensory deficits Assessment:: 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 Patient understands at this is diagnostic in nature he is a neurotomy candidate. He is not on any anticoagulation therapy. I will follow-up with him after his injection reassess his symptoms at that time he has been instructed to call the office if he has any issues prior to his next appointment. Dr. Shetty has reviewed this note and agrees with this plan of care. This note was dictated using voice recognition software and may contain errors or omissions [facility] History I have reviewed the patient's past medical history: Yes Medical History: Reports:: Gastroesophageal Reflux Disease(GERD), MRSA Denies:: Cancer, Diabetes Mellitus Type 1, Diabetes Mellitus Type 2, Internal Pacemaker, Seizures *Have you ever received a pneumonia vaccine?: Yes *Have you received a flu vaccine this season?: Yes Other Medical History: Denies: Blood Transfusion Reaction Laterality Cases: Left: Arthroscopy Knee, Right: Other Other Surgeries: Yes: Hernia Repair (inguinal). No: Pacemaker Amputation: No Fractures: No - *Social History Smoking Status: Former smoker Alcohol Intake: never *Occupational Status:: other Housing: house Household Members: spouse *Travel in the last 8 weeks: None Family Hx:: Cancer, Diabetes
== END ==
PROVIDERS: PCP Family Medicine; Visit Provider Clinical Nurse Specialist Family Health
DX: M51.36 Other intervertebral disc degeneration, lumbar region (principal); M47.816 Spondylosis without myelopathy or radiculopathy, lumbar region; M54.06 Panniculitis affecting regions of neck and back, lumbar region
CPT/HCPCS: 99212

== ENCOUNTER 2019-12-05 09:10 | Day surgery (SDC) | payer OTHER, SELFPAY ==
[2019-12-05 09:36] VITALS: BP 117/74; PULSE 78; RESP 18; TEMP 35.9; O2SAT 99; BMI 26.6
[2019-12-05 10:16] VITALS: BP 111/74; PULSE 75; RESP 18; O2SAT 99
[2019-12-05 10:19] VITALS: BP 115/85; PULSE 75; RESP 18; O2SAT 98
[2019-12-05 10:37] VITALS: BP 137/79; PULSE 62; RESP 18; O2SAT 99
--- NOTE | 2019-12-05 11:27 | HMH.PMPROC ---
- Procedure Date: 12/05/19 Time: 11:27 Anesthesiologist:: Tyler Shetty MD Complications:: None Pre-procedure Diagnosis:: Degenerative disc disease of lumbar spine with lumbar spondylosis and facet arthropathy of lumbar spine. Post-procedure Diagnosis:: Same Indications for Procedure:: Patient is a pleasant 59-year-old white male who we have been treating for low back pain with lumbar radicular symptoms. He did have a Nevro cord stimulator which was removed for suspected infection. He did have good pain relief for approximately 3 months after removal of his stimulator however now his pain is returning. He has had previous RFA's of lumbar facet joints in the past which gave him significant relief. Pain is returned in the back and also he does have some pain down into his right foot. We will do lumbar medial branch block/facet joint injections of L3-L4 and L4-5 and L5-S1 today to see if this gives him relief of his pain symptoms. Procedure Details:: Lumbar medial branch block Informed consent was obtained and the risks and benefits of the procedure was explained to the patient. The back was prepped using ChloraPrep. The skin and subcutaneous tissues were anesthetized using lidocaine. I placed 22-gauge spinal needles into the facet joint/medial branches of L3-L4, L4-L5 and L5-S1 bilaterally. Needle placement was confirmed with dye. After this we injected 3 mL bupivacaine 0.25% and Depo-Medrol 13 mg into each facet joint/medial branch of L3-L4, L4-L5 and L5-S1 bilaterally. We used a total of 80 mg Depo-Medrol for all 3 levels bilaterally. The patient tolerated the procedure well with no complications. Plan and Disposition:: We will follow-up with him in 2 weeks. Will reevaluate symptoms at that time.
== END 2019-12-05 10:39 | disposition home or self-care (01) ==
LOC: SC.PAINP 09:12
PROVIDERS: PCP Family Medicine; Visit Provider Anesthesiology
DX: M51.36 Other intervertebral disc degeneration, lumbar region (principal); M47.816 Spondylosis without myelopathy or radiculopathy, lumbar region; M12.88 Other specific arthropathies, not elsewhere classified, other specified site; I10 Essential (primary) hypertension; Z79.899 Other long term (current) drug therapy; Z91.013 Allergy to seafood
CPT/HCPCS: 64493; 64494; 64495; J1030; Q9966

== ENCOUNTER → 2019-12-29 13:13 | Outpatient (POV) | payer OTHER, SELFPAY ==
--- NOTE | 2019-12-29 13:23 | P.CONS_ITS ---
[facility] Pain Management SOAP Note Subjective:: Patient is a pleasant 59-year-old white male who we are treating for low back pain with lumbar radiculopathy. He has had his Nevro stimulator removed. Patient is following up after medial branch block. Patient got 90% relief of his symptomology he still having pain relief he rates his pain a 3 out of 10. He would like to repeat this in about 6 weeks. He is not on any anticoagulation therapy. He does not want any pills stating that he has had ulcers in the past. ROS General: no recent weight change, no fever, no sleep disturbances Respiratory: no cough, no shortness of air, no recurring pulmonary infections Cardiovascular/Peripheral Vascular: No chest pain, No palpitations, no edema, no shortness of breath. Gastrointestinal: no new onset incontinence, normal bowel movements reported Genitourinary: no new onset incontinence Musculoskeletal: Back pain Psychiatric: normal mood/ affect Neurological: [denies new onset weakness in extremities], [denies new onset balance issues] Objective:: Physical Exam General: Alert and oriented x3, no acute distress, pleasant and cooperative, [on room air] Lungs: Resps E/U, Symmetrical chest expansion, Eyes: PERRL Musculoskeletal: Flexion and extension of lumbar spine somewhat guarded secondary to pain, deep tendon reflexes normal, strength in upper and lower extremities [5/5], slightly antalgic gait noted, positive facet loading lumbar spine Neurological: speech clear, digital sales director equal, no gross sensory deficits Assessment:: Degenerative disc disease lumbar spine lumbar facet arthropathy lumbar spondylosis Plan:: We will schedule the patient for an L3-L4 L4-L5 L5-S1 bilateral medial branch block in 6 weeks. Patient's been instructed to call the office if he has any issues prior to his next appointment. I will follow-up with him after this. Patient and I also discussed potential neurotomy in the future. He is had this in the past with good relief. He is uninterested in this at this time. Dr. Shetty has reviewed this note and agrees with this plan of care. This note was dictated using voice recognition software and may contain errors or omissions [facility] History I have reviewed the patient's past medical history: Yes Medical History: Reports:: Gastroesophageal Reflux Disease(GERD), MRSA Denies:: Cancer, Diabetes Mellitus Type 1, Diabetes Mellitus Type 2, Internal Pacemaker, Seizures *Have you ever received a pneumonia vaccine?: No *Have you received a flu vaccine this season?: No Other Medical History: Denies: Blood Transfusion Reaction Laterality Cases: Left: Arthroscopy Knee, Right: Other Other Surgeries: Yes: Hernia Repair (inguinal). No: Pacemaker Amputation: No Fractures: No - *Social History Smoking Status: Former smoker Alcohol Intake: never *Occupational Status:: employed Housing: house Household Members: spouse *Travel in the last 8 weeks: None Family Hx:: Cancer, Diabetes
[2019-12-29 13:24] VITALS: BP 185/81; PULSE 118; RESP 18; TEMP 36.8; O2SAT 98; BMI 34.0
== END ==
PROVIDERS: PCP Family Medicine; Visit Provider Clinical Nurse Specialist Family Health
DX: M51.36 Other intervertebral disc degeneration, lumbar region (principal); M12.88 Other specific arthropathies, not elsewhere classified, other specified site; M47.816 Spondylosis without myelopathy or radiculopathy, lumbar region
CPT/HCPCS: 99212

== ENCOUNTER 2020-01-23 11:27 | Day surgery (SDC) | payer OTHER, SELFPAY ==
[2020-01-23 11:41] VITALS: BP 126/80; PULSE 73; RESP 18; TEMP 36.5; O2SAT 98; BMI 26.6
[2020-01-23 12:36] VITALS: BP 114/75; BP 115/78; PULSE 69; PULSE 70; RESP 18; O2SAT 99
--- NOTE | 2020-01-23 12:42 | P.PCN_ITS ---
- Procedure Date: 01/23/20 Time: 12:42 Anesthesiologist:: Tyler Shetty MD Complications:: None Pre-procedure Diagnosis:: Degenerative disc disease of lumbar spine with lumbar spondylosis and facet arthropathy of lumbar spine Post-procedure Diagnosis:: Same Indications for Procedure:: This patient is a pleasant 59-year-old white male who we are treating for low back pain with lumbar spondylosis and facet arthropathy. He got great relief from his last round of medial branch blocks he was 80 to 90% better for several weeks. His pain is now starting to return. We will do repeat bilateral lumbar medial branch block/facet joint injections of L3-L4, L4-5 and L5-S1 today. Procedure Details:: Lumbar medial branch block Informed consent was obtained and the risks and benefits of the procedure was explained to the patient. The back was prepped using ChloraPrep. The skin and subcutaneous tissues were anesthetized using lidocaine. I placed 22-gauge spina l needles into the facet joint/medial branches of L3-L4, L4-L5 and L5-S1 bilaterally. Needle placement was confirmed with dye. After this we injected 3 mL bupivacaine 0.25% and Depo-Medrol 13 mg into each facet joint/medial branch of L3-L4, L5 and L5-S1 bilaterally. We used a total of 80 mg Depo-Medrol for all 3 levels bilaterally. The patient tolerated the procedure well with no complications. Plan and Disposition:: We will follow-up with him in 2 weeks. Will reevaluate symptoms at that time. If successful we will plan on radiofrequency ablation to the same levels of L3- L4, L4-5 and L5-S1 bilaterally.
[2020-01-23 12:46] VITALS: BP 115/75; PULSE 59; RESP 18; O2SAT 98
== END 2020-01-23 12:48 | disposition home or self-care (01) ==
LOC: SC.PAINP 11:28
PROVIDERS: PCP Family Medicine; Visit Provider Anesthesiology
DX: M51.36 Other intervertebral disc degeneration, lumbar region (principal); M47.816 Spondylosis without myelopathy or radiculopathy, lumbar region; M12.88 Other specific arthropathies, not elsewhere classified, other specified site
CPT/HCPCS: 64493; 64494; 64495; J1030; Q9966

== ENCOUNTER → 2020-02-09 13:32 | Outpatient (POV) | payer OTHER, SELFPAY ==
[2020-02-09 14:13] VITALS: BP 135/88; PULSE 77; RESP 18; O2SAT 98; BMI 26.6
--- NOTE | 2020-02-09 14:37 | HMH.PAINSOAP ---
[facility] Pain Management SOAP Note Subjective:: Is a pleasant 59-year-old white male who presents today for follow-up after his lumbar medial branch block. Patient got 90% relief from his medial branch block at L3-L4 L4-L5 L5-S1 bilaterally. This is his second medial branch block. He is a candidate for rhizotomy. Patient rates his pain a 3 out of 10 today. He is much more functional after his injection therapy. He is not on any anticoagulation therapy. He would like to move forward with radiofrequency ablation of these levels. ROS General: no recent weight change, no fever, no sleep disturbances Respiratory: no cough, no shortness of air, no recurring pulmonary infections Cardiovascular/Peripheral Vascular: No chest pain, No palpitations, no edema, no shortness of breath. Gastrointestinal: no new onset incontinence, normal bowel movements reported Genitourinary: no new onset incontinence Musculoskeletal: Back pain Psychiatric: normal mood/ affect Neurological: [denies new onset weakness in extremities], [denies new onset balance issues] Objective:: Physical Exam General: Alert and oriented x3, no acute distress, pleasant and cooperative, [on room air] Lungs: Resps E/U, Symmetrical chest expansion, Eyes: PERRL Musculoskeletal: Flexion and extension of lumbar spine somewhat guarded secondary to pain, deep tendon reflexes normal, strength in upper and lower extremities [5/5], slightly antalgic gait noted Neurological: speech clear, dirt supervisor equal, no gross sensory deficits Assessment:: Degenerative disc disease lumbar spine with lumbar spondylosis facet arthropathy lumbar spine Plan:: We will go in for radiofrequency ablation. We will start with the right side at L3-L4 L4-L5 L5-S1 and then do the left side 2 weeks later at L3-L4 L4-5 L5-S1. Patient is gotten good relief with his medial branch blocks. I will follow-up with him after this reassess his symptoms at that time he has been instructed to call the office if he has any issues prior to his next appointment. He is not on any anticoagulation therapy. He is tried and failed anti-inflammatories. Dr. Shetty has reviewed this note and agrees with this plan of care. This note was dictated using voice recognition software and may contain errors or omissions [facility] History I have reviewed the patient's past medical history: Yes Medical History: Reports:: Gastroesophageal Reflux Disease(GERD) Denies:: Cancer, Diabetes Mellitus Type 1, Diabetes Mellitus Type 2, Internal Pacemaker, MRSA, Seizures *Have you ever received a pneumonia vaccine?: Yes *Have you received a flu vaccine this season?: Yes Other Medical History: Denies: Blood Transfusion Reaction Laterality Cases: Left: Arthroscopy Knee, Right: Other Other Surgeries: Yes: Hernia Repair (inguinal). No: Pacemaker Amputation: No Fractures: No - *Social History Smoking Status: Former smoker Alcohol Intake: current Alcohol Intake Frequency:: holidays/special occasions only *Occupational Status:: other Housing: house Household Members: spouse *Travel in the last 8 weeks: None Family Hx:: Cancer, Diabetes
== END ==
PROVIDERS: PCP Family Medicine; Visit Provider Clinical Nurse Specialist Family Health
DX: M51.36 Other intervertebral disc degeneration, lumbar region (principal); M47.816 Spondylosis without myelopathy or radiculopathy, lumbar region; M12.88 Other specific arthropathies, not elsewhere classified, other specified site
CPT/HCPCS: 99212

== ENCOUNTER 2020-02-27 09:14 | Day surgery (SDC) | payer OTHER, SELFPAY ==
[2020-02-27 09:20] VITALS: BP 114/81; PULSE 72; RESP 18; TEMP 36.4; O2SAT 98; BMI 26.6
[2020-02-27 09:49] VITALS: BP 142/85; PULSE 87; RESP 18
[2020-02-27 09:50] VITALS: BP 138/78; PULSE 77; RESP 18; O2SAT 99
[2020-02-27 10:09] VITALS: BP 113/73; PULSE 77; RESP 18; O2SAT 98
--- NOTE | 2020-02-27 10:09 | HMH.PMPROC ---
- Procedure Date: 02/27/20 Time: 10:10 Anesthesiologist:: Tyler Shetty MD Complications:: None Pre-procedure Diagnosis:: Degenerative disc disease of lumbar spine with lumbar spondylosis and facet arthropathy of lumbar spine Post-procedure Diagnosis:: Same Indications for Procedure:: This patient is a pleasant 59-year-old white male who we are treating for low back pain with lumbar spondylosis and facet arthropathy of lumbar spine. He got significant relief from medial branch blocks about 90% from medial branch block injection/facet joint injections of L3-L4, 4 5 and L5-S1 bilaterally. His pain is just now starting to return. We will do radiofrequency ablation of the facet joints of L3-L4, L4-5 and L5-S1 starting with the right side today. Procedure Details:: Lumbar RFA informed consent was obtained and the risk and benefits of the procedure was explained to the patient. Patient was placed prone on the procedure table. The patient was prepped and draped in sterile fashion. C-arm fluoroscopy was used to view the lumbar spine. The skin and subcutaneous tissues were anesthetized using lidocaine. I placed 20-gauge RF needles into the facet joints of L3-L4, L4-5 and L5-S1 levels on the right side. We underwent sensory stimulation. There is good sensory stimulation at 0.8 V. We underwent motor stimulation. There is no motor stimulation at 2 V. We then anesthetized these levels with lidocaine and Depo-Medrol. I used a total of 40 mg Depo-Medrol for all 3 levels. I then burned all 3 levels of L3-L4, 4 5 and L5-S1 facet joint/medial branches on the right side each one for 4 minutes at 80 ?C. Patient tolerated the procedure well with no complication. Plan and Disposition:: We will follow-up with him in 2 weeks we will reevaluate symptoms at that time. We will plan on RF ablation of the facet joint/medial branches of L3-L4, L4 5 and L5-S1 left side.
== END 2020-02-27 10:10 | disposition home or self-care (01) ==
LOC: SC.PAINP 09:15
PROVIDERS: PCP Family Medicine; Visit Provider Anesthesiology
DX: M51.36 Other intervertebral disc degeneration, lumbar region (principal); M47.816 Spondylosis without myelopathy or radiculopathy, lumbar region; M12.88 Other specific arthropathies, not elsewhere classified, other specified site; I10 Essential (primary) hypertension; G43.909 Migraine, unspecified, not intractable, without status migrainosus; Z87.39 Personal history of other diseases of the musculoskeletal system and connective tissue; Z79.899 Other long term (current) drug therapy
CPT/HCPCS: 64635; 64636; J1040

== ENCOUNTER 2020-03-12 09:18 | Day surgery (SDC) | payer OTHER, SELFPAY ==
[2020-03-12 09:38] VITALS: BP 101/67; PULSE 64; RESP 18; TEMP 36.6; O2SAT 98; BMI 26.6
[2020-03-12 10:41] VITALS: BP 132/80; PULSE 79; RESP 18; O2SAT 98
[2020-03-12 10:42] VITALS: BP 133/84; PULSE 80; RESP 18; O2SAT 99
[2020-03-12 11:04] VITALS: BP 129/88; PULSE 73; RESP 18; O2SAT 98
--- NOTE | 2020-03-12 11:55 | HMH.PMPROC ---
- Procedure Date: 03/12/20 Time: 11:55 Anesthesiologist:: Tyler Shetty MD Complications:: None Pre-procedure Diagnosis:: Generative disc disease of the lumbar spine with lumbar spondylosis and facet arthropathy of lumbar spine Post-procedure Diagnosis:: Same Indications for Procedure:: This patient is a pleasant 59-year-old white male who we are treating for low back pain with lumbar spondylosis and facet arthropathy of lumbar spine. He is done very well with RF ablation to the facet joints of L3-4, L4-5 and L5-S1 on the right side. He presents for RF ablation to the facet joints at the same levels on the left side today. Procedure Details:: Lumbar RFA informed consent was obtained and the risk and benefits of the procedure was explained to the patient. Patient was placed prone on the procedure table. The patient was prepped and draped in sterile fashion. C-arm fluoroscopy was used to view the lumbar spine. The skin and subcutaneous tissues were anesthetized using lidocaine. I placed 20-gauge RF needles into the facet joints of L3-4, L4-5 and L5-S1 levels on the left side. We underwent sensory stimulation. There is good sensory stimulation at 0.8 V. We underwent motor stimulation. There is no motor stimulation at 2 V. We then anesthetized these levels with lidocaine and Depo-Medrol. I used a total of 40 mg Depo-Medrol for both levels. I then burned both levels of L3-4, L4-5 and L5-S1 on the left side facet joint/medial branches for 4 minutes at 80 ?C. Patient tolerated the procedure well with no complication. Plan and Disposition:: We will follow-up with him in 2 weeks. Will reevaluate symptoms at that time.
== END 2020-03-12 11:05 | disposition home or self-care (01) ==
LOC: SC.PAINP 09:20
PROVIDERS: PCP Family Medicine; Visit Provider Anesthesiology
DX: M51.36 Other intervertebral disc degeneration, lumbar region (principal); M47.816 Spondylosis without myelopathy or radiculopathy, lumbar region; M12.88 Other specific arthropathies, not elsewhere classified, other specified site; K21.9 Gastro-esophageal reflux disease without esophagitis; Z82.49 Family history of ischemic heart disease and other diseases of the circulatory system; Z87.39 Personal history of other diseases of the musculoskeletal system and connective tissue; Z79.899 Other long term (current) drug therapy; Z91.013 Allergy to seafood
CPT/HCPCS: 64635; 64636; J1040

== ENCOUNTER → 2020-04-01 10:09 | Outpatient (POV) | payer OTHER, SELFPAY ==
--- NOTE | 2020-04-01 11:02 | HMH.PAINSOAP ---
[facility] Pain Management SOAP Note Subjective:: Patient is a 59-year-old white male who presents today for follow-up after RFA at L3-L4 L4-L5 and L5-S1. Patient is being treated for chronic low back pain with lumbar spondylosis and facet arthropathy lumbar spine. Patient rates his pain a 3 out of 10 today. Patient says he got approximately 80% relief with the RFA. Patient did have a spinal cord stimulator in the past that had to removed secondary to infection. Patient says since having these stimulator removed, he has continued with injections. He does not want to do oral opiates. Patient says overall he does well with the injections. Review of Systems General: No recent weight changes, no fever, no sleep disturbances Respiratory: No cough, no shortness of air, no recurring pulmonary infections Cardiovascular/peripheral vascular: No chest pain, no palpitations, no edema, no shortness of breath Gastrointestinal: No new onset incontinence, normal bowel movements reported Genitourinary: No new onset incontinence Musculoskeletal: Low back pain worse with bending forward Psychiatric: Normal mood/affect Neurological: [Denies weakness in extremities], [denies balance issues] Objective:: Physical exam General: Alert and oriented x3, no acute distress, pleasant and cooperative, [on room air] Lungs: Respirations even and unlabored, symmetrical chest expansion Eyes: PERRL Musculoskeletal: Flexion and extension of lumbar spine somewhat guarded secondary to pain, deep tendon reflexes normal, strength in upper and lower extremities [5/5], [abnormal gait noted] positive Kemps test Neurological: Speech clear, accounting assistant equal, no gross sensory deficit Assessment:: Degenerative disc disease lumbar spine with lumbar spondylosis and facet arthropathy lumbar spine Plan:: Overall, the patient is doing well since having his RFA. We will plan to see the patient back in the clinic in 3 months to reassess his symptoms. Patient has been instructed to contact clinic if he has any concerns before his next appointment. The patient and I specifically discussed risk factors for COVID19. These risks include, but are not limited to age greater than 60, heart or lung disease, diabetes, immunosuppression, and travel. We also discussed NSAIDs may worsen COVID19 infection or symptoms. Patient should not use NSAIDs to treat COVID19 signs or symptoms. Patient was also informed that any type of corticosteroid of any form (oral or injection) will decrease the patient's immune system response and may increase the likelihood of COVID19 infection [address] symptoms[address] Shetty has reviewed this note and agrees with this plan of care. This note was dictated using voice recognition software and make contain errors or omissions. [facility] History I have reviewed the patient's past medical history: Yes Medical History: Reports:: Gastroesophageal Reflux Disease(GERD) Denies:: Cancer, Diabetes Mellitus Type 1, Diabetes Mellitus Type 2, Internal Pacemaker, MRSA, Seizures *Have you ever received a pneumonia vaccine?: No *Have you received a flu vaccine this season?: No Other Medical History: Denies: Blood Transfusion Reaction Laterality Cases: Left: Arthroscopy Knee, Right: Arthroscopy Shoulder, Other Other Surgeries: Yes: Hernia Repair (inguinal). No: Pacemaker Amputation: No Fractures: No - *Social History Smoking Status: Former smoker Alcohol Intake: current Alcohol Intake Frequency:: a few times a month *Occupational Status:: retired Housing: house Household Members: spouse *Travel in the last 8 weeks: None Family Hx:: Cancer, Diabetes
[2020-04-01 11:06] VITALS: BP 129/85; PULSE 91; RESP 18; O2SAT 98; BMI 26.2
== END ==
PROVIDERS: Visit Provider Clinical Nurse Specialist Family Health
DX: M51.36 Other intervertebral disc degeneration, lumbar region (principal); M47.816 Spondylosis without myelopathy or radiculopathy, lumbar region; M12.88 Other specific arthropathies, not elsewhere classified, other specified site
CPT/HCPCS: 99212

== ENCOUNTER → 2020-07-05 10:46 | Outpatient (POV) | payer OTHER, SELFPAY ==
[2020-07-05 11:07] VITALS: BP 132/77; PULSE 74; RESP 18; O2SAT 98; BMI 26.6
--- NOTE | 2020-07-05 12:30 | HMH.PAINSOAP ---
[facility] Pain Management SOAP Note Subjective:: Patient is a pleasant 60-year-old white male who presents today for follow-up. Patient had an RFA with about 3 months of relief. He rates his pain a 4 out of 10 today. Patient wants to discuss medication regimens. He is tried multiple medications including Lyrica, Elavil, Cymbalta. He is unable to take diclofenac due to his stomach. We discussed potential gabapentin he has not tried this recently. ROS General: no recent weight change, no fever, no sleep disturbances Respiratory: no cough, no shortness of air, no recurring pulmonary infections Cardiovascular/Peripheral Vascular: No chest pain, No palpitations, no edema, no shortness of breath. Gastrointestinal: no new onset incontinence, normal bowel movements reported Genitourinary: no new onset incontinence Musculoskeletal: Back pain, leg pain Psychiatric: normal mood/ affect, Neurological: [denies new onset weakness in extremities], [denies new onset balance issues] Objective:: Physical Exam General: Alert and oriented x3, no acute distress, pleasant and cooperative, [on room air] Lungs: Resps E/U, Symmetrical chest expansion, Eyes: PERRL Musculoskeletal: Flexion and extension of lumbar spine somewhat guarded secondary to pain, deep tendon reflexes normal, strength in upper and lower extremities [5/5], antalgic gait noted with Neurological: speech clear, pediatric physical therapy assistant equal, no gross sensory deficits Assessment:: degenerative disc disease lumbar spine with lumbar spondylosis facet arthropathy lumbar spine Plan:: Start the patient on gabapentin 100 mg 1 p.o. 4 times daily. Patient can take this and titrate. I will follow-up with him in 1 month reassess his symptoms at that time. He has been instructed to call the office if he has any issues prior to his next appointment. Dr. Shetty has reviewed this note and agrees with this plan of care. This note was dictated using voice recognition software and may contain errors or omissions [facility] History I have reviewed the patient's past medical history: Yes Medical History: Reports:: Gastroesophageal Reflux Disease(GERD) Denies:: Cancer, Diabetes Mellitus Type 1, Diabetes Mellitus Type 2, Internal Pacemaker, MRSA, Seizures *Have you ever received a pneumonia vaccine?: Yes *Have you received a flu vaccine this season?: Yes Other Medical History: Denies: Blood Transfusion Reaction Laterality Cases: Left: Arthroscopy Knee, Right: Arthroscopy Shoulder, Other Other Surgeries: Yes: Hernia Repair (inguinal). No: Pacemaker Amputation: No Fractures: No - *Social History Smoking Status: Former smoker Alcohol Intake: current Alcohol Intake Frequency:: a few times a month *Occupational Status:: other Housing: house Household Members: spouse *Travel in the last 8 weeks: None Family Hx:: Cancer, Diabetes
== END ==
PROVIDERS: Visit Provider Clinical Nurse Specialist Family Health
DX: M51.36 Other intervertebral disc degeneration, lumbar region (principal); M47.816 Spondylosis without myelopathy or radiculopathy, lumbar region; M54.06 Panniculitis affecting regions of neck and back, lumbar region
CPT/HCPCS: 99212

== ENCOUNTER → 2020-08-09 10:45 | Outpatient (POV) | payer OTHER, SELFPAY ==
[2020-08-09 11:09] VITALS: BP 129/79; PULSE 77; RESP 18; TEMP 36.8; O2SAT 98; BMI 25.1
--- NOTE | 2020-08-09 12:59 | P.CONS_ITS ---
[facility] Pain Management SOAP Note Subjective:: Is a pleasant 60-year-old white male who presents today for follow-up. Patient is being treated for low back pain. Patient rates his pain a 5 out of 10. Patient's tried and failed multiple medications including Lyrica, Elavil, Cymbalta. He is unable to take diclofenac or any anti-inflammatories due to his stomach. Patient was started on gabapentin which he is taking 100 mg 1 p.o. 4 times daily. He does not have side effects to these. Patient I discussed increasing his nightly dose to 300 mg he is agreeable. We also discussed field care coordinator he is agreeable in regard to this as well. ROS General: no recent weight change, no fever, no sleep disturbances Respiratory: no cough, no shortness of air, no recurring pulmonary infections Cardiovascular/Peripheral Vascular: No chest pain, No palpitations, no edema, no shortness of breath. Gastrointestinal: no new onset incontinence, normal bowel movements reported Genitourinary: no new onset incontinence Musculoskeletal: Back pain, leg pain Psychiatric: normal mood/ affect Neurological: [denies new onset weakness in extremities], [denies new onset balance issues] Objective:: Physical Exam General: Alert and oriented x3, no acute distress, pleasant and cooperative, [on room air] Lungs: Resps E/U, Symmetrical chest expansion, Eyes: PERRL Musculoskeletal: Flexion and extension of lumbar spine somewhat guarded secondary to pain, deep tendon reflexes normal, strength in upper and lower extr emities [5/5], antalgic gait noted Neurological: speech clear, sql server dba equal, no gross sensory deficits Assessment:: Degenerative disc disease lumbar spine lumbar spondylosis facet arthropathy lumbar spine Plan:: We will continue his gabapentin but we will change to 100 mg p.o. twice daily and 300 mg p.o. nightly. I will follow-up with him in 2 months reassess his symptoms at that time we will also refer him to the chiropractor in [place] to see if this also benefits his pain. Patient is been instructed to call the office if he has any issues prior to his next appointment. Dr. Shetty has reviewed this note and agrees with this plan of care. This note was dictated using voice recognition software and may contain errors or omissions [facility] History I have reviewed the patient's past medical history: Yes Medical History: Reports:: Gastroesophageal Reflux Disease(GERD) Denies:: Cancer, Diabetes Mellitus Type 1, Diabetes Mellitus Type 2, Internal Pacemaker, MRSA, Seizures *Have you ever received a pneumonia vaccine?: Yes *Have you received a flu vaccine this season?: Yes Other Medical History: Denies: Blood Transfusion Reaction Laterality Cases: Left: Arthroscopy Knee, Right: Arthroscopy Shoulder, Other Other Surgeries: Yes: Hernia Repair (inguinal). No: Pacemaker Amputation: No Fractures: No - *Social History Smoking Status: Former smoker Alcohol Intake: current Alcohol Intake Frequency:: a few times a month *Occupational Status:: employed Housing: house Household Members: spouse *Travel in the last 8 weeks: None Family Hx:: Cancer, Diabetes
== END ==
PROVIDERS: Visit Provider Clinical Nurse Specialist Family Health
DX: M51.36 Other intervertebral disc degeneration, lumbar region (principal); M47.816 Spondylosis without myelopathy or radiculopathy, lumbar region; M54.06 Panniculitis affecting regions of neck and back, lumbar region
CPT/HCPCS: 99212; G0463

== ENCOUNTER → 2020-10-11 10:43 | Outpatient (POV) | payer OTHER, SELFPAY ==
--- NOTE | 2020-10-11 11:54 | P.CONS_ITS ---
[facility] Pain Management SOAP Note Subjective:: Pleasant 60-year-old white male who presents today for follow-up. He is currently on gabapentin 100 mg 1 p.o. twice daily with 300 mg of gabapentin at nighttime. He rates his pain a 4 out of 10 stating that his pain is becoming worse. He has having difficulty sleeping secondary to pain. Patient has tried and failed Lyrica, Elavil, Cymbalta, diclofenac or and multiple anti- inflammatories. We have discussed post acute care registered nurse I do think that this would benefit him. Patient has right-sided radicular pain. Patient did have a neurostimulator which was removed. [facility] #[id number] reviewed and appropriate. ROS General: no recent weight change, no fever, no sleep disturbances Respiratory: no cough, no shortness of air, no recurring pulmonary infections Cardiovascular/Peripheral Vascular: No chest pain, No palpitations, no edema, no shortness of breath. Gastrointestinal: no new onset incontinence, normal bowel movements reported Genitourinary: no new onset incontinence Musculoskeletal: Back pain, leg pain Psychiatric: normal mood/ affect Neurological: [denies new onset weakness in extremities], [denies new onset balance issues] Objective:: Physical Exam General: Alert and oriented x3, no acute distress, pleasant and cooperative, [on room air] Lungs: Resps E/U, Symmetrical chest expansion, Eyes: PERRL Musculoskeletal: Flexion and extension of lumbar spine somewhat guarded secondary to pain, deep tendon reflexes normal, strength in upper and lower extremities [5/5], slightly antalgic gait noted Neurological: speech clear, conductor/brakeman equal, no gross sensory deficits Assessment:: Degenerative disc disease lumbar spine lumbar spondylosis facet arthropathy, back pain Plan:: We will continue his current gabapentin 100 mg 1 p.o. twice daily and 300 mg nightly. We will also start Robaxin 500 mg 1-2 tabs at nighttime to see if this is beneficial. We will set him up with post acute care registered nurse referral. I will follow-up with him in 1 month reassess his symptoms at that time he has been instructed to call the office if he has any issues prior to his next appointment. Dr. Shetty has reviewed this note and agrees with this plan of care. This note was dictated using voice recognition software and may contain errors or omissions [facility] History I have reviewed the patient's past medical history: Yes Medical History: Reports:: Gastroesophageal Reflux Disease(GERD) Denies:: Cancer, Diabetes Mellitus Type 1, Diabetes Mellitus Type 2, Internal Pacemaker, MRSA, Seizures *Have you ever received a pneumonia vaccine?: Yes *Have you received a flu vaccine this season?: Yes Other Medical History: Denies: Blood Transfusion Reaction Laterality Cases: Left: Arthroscopy Knee, Right: Arthroscopy Shoulder, Other Other Surgeries: Yes: Hernia Repair (inguinal). No: Pacemaker Amputation: No Fractures: No - *Social History Smoking Status: Former smoker Alcohol Intake: current Alcohol Intake Frequency:: a few times a month *Occupational Status:: employed Housing: house Household Members: spouse *Travel in the last 8 weeks: None Family Hx:: Cancer, Diabetes
[2020-10-11 12:27] VITALS: BP 128/89; PULSE 74; RESP 18; O2SAT 98; BMI 25.7
== END ==
PROVIDERS: Visit Provider Clinical Nurse Specialist Family Health
DX: M51.36 Other intervertebral disc degeneration, lumbar region (principal); M47.816 Spondylosis without myelopathy or radiculopathy, lumbar region; M54.06 Panniculitis affecting regions of neck and back, lumbar region
CPT/HCPCS: 99212; G0463

== ENCOUNTER → 2020-11-11 10:49 | Outpatient (POV) | payer OTHER, SELFPAY ==
[2020-11-11 11:55] VITALS: BP 125/71; PULSE 74; RESP 18; O2SAT 98; BMI 25.8
--- NOTE | 2020-11-11 13:24 | HMH.PAINSOAP ---
[facility] Pain Management SOAP Note Subjective:: Is a 60-year-old white male who presents today for follow-up. Patient is currently on gabapentin 100 mg 1 p.o. twice daily and 300 mg nightly and Robaxin 500 mg 1-2 tabs at nighttime. Patient is currently going to the chiropractor. In doing extremely well rating his pain a 3 out of 10. Patient has tried and failed Lyrica, Elavil, Cymbalta, diclofenac and other multiple anti-inflammatories. Patient states that the chiropractor has done much for him at this time. Patient did have a neurostimulator which was removed. After that his pain worsened. [facility] #[id number] reviewed and appropriate. ROS General: no recent weight change, no fever, no sleep disturbances Respiratory: no cough, no shortness of air, no recurring pulmonary infections Cardiovascular/Peripheral Vascular: No chest pain, No palpitations, no edema, no shortness of breath. Gastrointestinal: no new onset incontinence, normal bowel movements reported Genitourinary: no new onset incontinence Musculoskeletal: Back pain Psychiatric: normal mood/ affect, Neurological: [denies new onset weakness in extremities], [denies new onset balance issues] Objective:: Physical Exam General: Alert and oriented x3, no acute distress, pleasant and cooperative, [on room air] Lungs: Resps E/U, Symmetrical chest expansion, Eyes: PERRL Musculoskeletal: Flexion and extension of lumbar spine somewhat guarded secondary to pain, deep tendon reflexes normal, strength in upper and lower extremities [5/5], antalgic gait noted Neurological: speech clear, ice crusher equal, no gross sensory deficits Assessment:: Degenerative disc disease lumbar spine lumbar radiculopathy Plan:: We will continue his gabapentin 100 mg 1 p.o. twice daily and gabapentin 300 mg at nighttime along with his Robaxin. He has been instructed to call the office if he has any issues prior to his next appointment I will see him back in [address] Shetty has reviewed this note and agrees with this plan of care. This note was dictated using voice recognition software and may contain errors or omissions [facility] History I have reviewed the patient's past medical history: Yes Medical History: Reports:: Gastroesophageal Reflux Disease(GERD) Denies:: Cancer, Diabetes Mellitus Type 1, Diabetes Mellitus Type 2, Internal Pacemaker, MRSA, Seizures *Have you ever received a pneumonia vaccine?: Yes *Have you received a flu vaccine this season?: Yes Other Medical History: Denies: Blood Transfusion Reaction Laterality Cases: Left: Arthroscopy Knee, Right: Arthroscopy Shoulder, Other Other Surgeries: Yes: Hernia Repair (inguinal). No: Pacemaker Amputation: No Fractures: No - *Social History Smoking Status: Former smoker Alcohol Intake: current Alcohol Intake Frequency:: a few times a month *Occupational Status:: other Housing: house Household Members: spouse *Travel in the last 8 weeks: None Family Hx:: Cancer, Diabetes
== END ==
PROVIDERS: Visit Provider Clinical Nurse Specialist Family Health
DX: M51.16 Intervertebral disc disorders with radiculopathy, lumbar region (principal)
CPT/HCPCS: 99212; G0463

== ENCOUNTER → 2020-12-27 13:58 | Outpatient (POV) | payer OTHER, SELFPAY ==
[2020-12-27 14:18] VITALS: BP 121/68; PULSE 80; RESP 18; O2SAT 97; BMI 25.8
--- NOTE | 2020-12-27 15:57 | HMH.PAINSOAP ---
[facility] Pain Management SOAP Note Subjective:: Patient is a 60-year-old white male who presents today for follow-up and for medication refills. Patient is managed in our clinic with oral medications for degenerative disc disease lumbar spine with lumbar radiculopathy symptoms. Patient is taking gabapentin 100 mg 1 tablet p.o. daily and 300 mg at bedtime along with Robaxin 500 mg 1 to 2 tablets at bedtime. Patient has seen a chiropractor and says he is no longer getting significant relief. He is mainly having low back pain with radiation into his coccyx and into his legs. He says he cannot sleep at night and is having severe anxiety. He is requesting clonazepam today. I have advised the patient we are unable to prescribe clonazepam, however, may be prescribed at the discretion of his primary care provider. His pain is a 5 out of 10 today. He has severe right hip pain. The patient has had multiple conservative therapies in our clinic as well as interventional therapies. He has had lumbar epidural steroid injections as well as medial branch blocks and RFA's. He has also had spinal cord stimulation. Unfortunately, due to questionable infected implant, his device was removed. Patient has seen Dr. Evans as well as Dr. Guerin in the past with patient being informed he was not likely a surgical candidate. We are limited in what we can offer the patient in the clinic at this time. He has tried and failed Lyrica in the past along with Elavil, Cymbalta, and diclofenac. He is also tried other multiple anti-inflammatories with no significant relief. He has had physical therapy with no relief. Patient and I had a long discussion today that we can try compounding cream to apply topically to the area. Otherwise, we are very limited with treatment options at this point. He has, as stated previously, requested clonazepam for anxiety. Review of Systems General: No recent weight changes, no fever, no sleep disturbances Respiratory: No cough, no shortness of air, no recurring pulmonary infections Cardiovascular/peripheral vascular: No chest pain, no palpitations, no edema, no shortness of breath Gastrointestinal: No new onset incontinence, normal bowel movements reported Genitourinary: No new onset incontinence Musculoskeletal: Low back pain with radiation into coccyx and right hip Psychiatric: Normal mood/affect Neurological: [Denies weakness in extremities], [denies balance issues] Objective:: Physical exam General: Alert and oriented x3, no acute distress, pleasant and cooperative, [on room air] Lungs: Respirations even and unlabored, symmetrical chest expansion Eyes: PERRL Musculoskeletal: Flexion and extension of [] lumbar spine somewhat guarded secondary to pain, deep tendon reflexes normal, strength in upper and lower extremities [5/5], [abnormal gait noted] Neurological: Speech clear, leaf sticker equal, no gross sensory deficit Assessment:: Degenerative disc disease lumbar spine with lumbar radiculopathy symptoms Plan:: We will order the patient compounding cream to apply topically to his low back and hip. Unfortunately, we are limited in options for the patient at this point. We will continue his gabapentin 100 mg 1 tablet p.o. twice daily and 300 mg at bedtime. We will also refill his Robaxin 500 mg 1 to 2 tablets p.o. at bedtime. We will give him compounding cream. He has requested clonazepam. I have advised the patient that he will need to request this medication with his primary care provider, as we do not prescribe clonazepam. We will see him back in the clinic in 2 weeks to see if compounding cream has been effective for his pain. Risks and benefits of the medication have been explained in detail to the patient. The patient has been advised to consult with his/her primary care provider and pharmacist regarding drug-drug interaction of medications currently prescribed. Patient has been instructed to contact the clinic with any
== END ==
PROVIDERS: Visit Provider Clinical Nurse Specialist Family Health
DX: M51.16 Intervertebral disc disorders with radiculopathy, lumbar region (principal)
CPT/HCPCS: 99212; G0463

== ENCOUNTER → 2021-08-02 08:58 | Outpatient (POV) | payer OTHER, SELFPAY ==
[2021-08-02 09:10] VITALS: BP 103/68; PULSE 71; RESP 20; TEMP 37; O2SAT 96; BMI 33.0
--- NOTE | 2021-08-02 09:44 | HMH.PAINSOAP ---
[facility] Pain Management SOAP Note Subjective:: Patient is a 61-year-old white female who presents today for follow-up. Patient was last seen on 12/27/2020. At that time, the patient was given compounding cream. He continues to have significant pain low back with radiation into his right inner thigh and right ankle. He has seen Dr. Evans as well as Dr. Guerin in the past and was informed he is not a surgical candidate from a neurosurgery standpoint. In the past the patient did have a spinal cord stimulator that has been removed due to infection. He says that he has had multiple rounds of injective therapy with minimal relief. He complains of pain with standing and walking that improved somewhat with sitting. The patient's sees Dr. Marino in [facility]. Patient was advised that he may be a good candidate for mild versus Vertiflex procedure when with his at Dr. Marino's office. He is here today with pamphlets from Vertiflex as well as mild. The patient says that he was told he likely has spinal stenosis given his symptoms and would likely benefit from one of the procedures. He is here today to discuss these procedures and to determine if Dr. Shetty does perform these procedures. He rates his pain a 6 out of 10. Review of Systems General: No recent weight changes, no fever, no sleep disturbances Respiratory: No cough, no shortness of air, no recurring pulmonary infections Cardiovascular/peripheral vascular: No chest pain, no palpitations, no edema, no shortness of breath Gastrointestinal: No new onset incontinence, normal bowel movements reported Genitourinary: No new onset incontinence Musculoskeletal: []low back pain into right lower extremity, right inner thigh, right ankle Psychiatric: [Normal mood/affect] Neurological: [Denies weakness in extremities], [denies balance issues] Objective:: Physical exam General: Alert and oriented x3, no acute distress, pleasant and cooperative Lungs: Respirations even and unlabored, symmetrical chest expansion Eyes: PERRL Musculoskeletal: Flexion and extension of lumbar [spine] somewhat guarded secondary to pain, [antalgic gait noted] Neurological: Speech clear, no gross sensory deficit Assessment:: Degenerative disc disease lumbar spine with lumbar radiculopathy symptoms Plan:: Patient is here today to request MRI lumbar spine Vertiflex procedure. He and I had a long discussion concerning his last MRI from 2019. It does show some ligamentum flavum hypertrophy at L3-L4. He is not complaining of neurogenic claudication symptoms, however, says that he was told at Dr. Marino's office that he does likely have spinal stenosis and would greatly benefit from one of the procedures. He has had epidural steroid injections in the past which have only given him short-term relief. We did discuss we can schedule him for an epidural with epidurogram to determine if he is an appropriate candidate. He would like to proceed. He is not diabetic and is not on any anticoagulation therapy. We will schedule him for lumbar epidural steroid injection L4-L5 with epidurogram. We will follow-up with him afterwards to discuss a further plan of care. Possible side effects of corticosteroids have been discussed with the patient. Risks and benefits of the procedure have been explained to the patient. Patient would like to proceed with the procedure. Patient has been instructed to contact the clinic with any concerns before the next appointment. Dr. Shetty has reviewed this note and agrees with this plan of care. This note was dictated using voice recognition software and make contain errors or omissions. [facility] History I have reviewed the patient's past medical history: Yes Medical History: Reports:: Gastroesophageal Reflux Disease(GERD) Denies:: Cancer, Diabetes Mellitus Type 1, Diabetes Mellitus Type 2, Internal Pacemaker, MRSA, Seizures *Have you ever received a pneumonia vaccine?: No *Have you r
== END ==
PROVIDERS: Visit Provider Clinical Nurse Specialist Family Health
DX: M51.16 Intervertebral disc disorders with radiculopathy, lumbar region (principal)
CPT/HCPCS: 99212; G0463

== ENCOUNTER 2021-09-09 08:31 | Day surgery (SDC) | payer OTHER, SELFPAY ==
[2021-09-09 08:51] VITALS: BP 109/81; BP 110/84; BP 117/74; PULSE 73; PULSE 74; PULSE 75; RESP 17; RESP 18; RESP 20; TEMP 36.8; O2SAT 96; O2SAT 97; BMI 25.8
[2021-09-09 09:30] VITALS: BP 124/81; PULSE 77; RESP 20; O2SAT 98
--- NOTE | 2021-09-09 09:49 | HMH.PMPROC ---
- Procedure Date: 09/09/21 Time: 09:49 Anesthesiologist:: Tyler Shetty MD Complications:: None Pre-procedure Diagnosis:: Degenerative disc disease of lumbar spine with lumbar spinal stenosis and neurogenic claudication symptoms particularly down the right leg Post-procedure Diagnosis:: Same Indications for Procedure:: The patient is a pleasant 61-year-old white male who we are treating for low back pain with lumbar radicular symptoms and lumbar spinal stenosis with neurogenic claudication symptoms. He does have ligamentum flavum hypertrophy at L3-L4 and L4-L5. He only gets short-term relief with epidural steroid injections. We will do an epidural steroid injection with epidurogram today to assess levels of stenosis and candidacy for minimally invasive lumbar decompression or superion Vertiflex. Procedure Details:: Informed consent was obtained and the risk and benefits of the procedure was explained to the patient. The patient was taken to the procedure room. The patient was placed prone on the procedure table. The patient was prepped and draped in sterile fashion. C-arm fluoroscopy was used to view the lumbar spine. Skin and subcutaneous tissues were anesthetized using lidocaine. I placed an 18-gauge epidural needle and advanced into the L4-L5 interspace using fluoroscopic guidance and [id number] to air. After confirmation of needle placement in the epidural space with dye I injected 2 mL of lidocaine 1.5% with Depo-Medrol 80 mg. Patient tolerated the procedure well with no complications. Plan and Disposition:: Based on epidurogram he does have significant stenosis at L3-L4 and L4-L5. Right side is the worst. Given his symptomology and pathology I do believe he would benefit first from minimally invasive lumbar decompression bilateral at L3-L4 and L4-L5. If he does not respond then we may consider L4-L5 superion Vertiflex implant.
== END 2021-09-09 09:31 | disposition home or self-care (01) ==
LOC: SC.PAINP 08:32
PROVIDERS: Visit Provider Anesthesiology
DX: M51.36 Other intervertebral disc degeneration, lumbar region (principal); M48.062 Spinal stenosis, lumbar region with neurogenic claudication; K21.9 Gastro-esophageal reflux disease without esophagitis; Z87.891 Personal history of nicotine dependence
CPT/HCPCS: 62323; J1040; Q9966

== ENCOUNTER → 2021-10-10 15:02 | Outpatient (POV) | payer OTHER, SELFPAY ==
--- NOTE | 2021-10-10 16:01 | HMH.PAINSOAP ---
[facility] Pain Management SOAP Note Subjective:: Patient is a pleasant 59-year-old male who presents today for follow-up. Patient is currently being treated for degenerative disc disease of lumbar spine with lumbar radiculopathy symptoms, spinal stenosis with neurogenic claudication. We have been managing this patient's low back pain that radiates to his right leg, knees, lower leg, right foot years now. Patient had an accident at work several years ago where he developed this injury to his low back. He is on worker's comp at the moment. We have tried several injective therapy, ablations, oral medications, physical therapy, and at home exercise for greater than 6 weeks with minimal relief. Patient also had a spinal cord stimulator in 2017 that was providing significant relief but he developed an infection and eventually to sepsis. He was hospitalized for several weeks because of that. More recently, we have tried lumbar epidural steroid injection with epidurogram that provided some relief. Dr. Shetty evaluated the patient and recommended that the patient could benefit from a minimally invasive lumbar decompression procedure or a Vertiflex procedure. Patient has been denied by his insurance for these 2 procedures. Patient is also tried chiropractic adjustment and physical therapy in the last year with minimal relief. Today, patient comes very frustrated because he continues to have significant low back pain that radiates to his right leg. He does not have any quality of life because of this pain from his work. He continues to have pain when he goes to sleep. He cannot tolerate any prolonged activity such as sitting, standing, and walking. Patient even reports pain from his right upper buttock that radiates around his groin and anterior thighs. This is worse whenever he is going up or about to sit down. Denies any recent falls or traumas. Denies any loss of bowel and bladder functions. For pain management, patient is taking tramadol 50 mg that is prescribed by an outside clinic. This is helping some of his pain. [facility] #[id number] with an active morphine equivalent of 0. Review of Systems: General: No recent weight changes, no fever, no sleep disturbances Respiratory: No cough, no shortness of air, no recurring pulmonary infections Cardiovascular/peripheral vascular: No chest pain, no palpitations, no edema, no shortness of breath Gastrointestinal: No new onset incontinence, normal bowel movements reported Genitourinary: No new onset incontinence Musculoskeletal: Low back pain, right leg pain Psychiatric: [Normal mood/affect] Neurological: [Denies weakness in extremities], [denies balance issues] Objective:: Physical Exam: General: Alert and oriented x3, no acute distress, pleasant and cooperative, [on room air] Lungs: Respirations even and unlabored, symmetrical chest expansion Eyes: PERRL Musculoskeletal: Flexion and extension of lumbar [spine] somewhat guarded secondary to pain; right SI is positive for TED, [place]'s, [place]'s, [place]'s, compression, and distraction. Neurological: Speech clear, no gross sensory deficit Assessment:: Degenerative disc disease of lumbar spine with lumbar radiculopathy symptoms, spinal stenosis with neurogenic claudication, right sacroiliitis Plan:: We have been managing this patient's pain for several years now. Patient has tried injective therapy, ablation, oral medication, physical therapy, and at home exercise program in 6 weeks. Patient also had a spinal cord stimulator in 2017 that was explanted because of sepsis. We have tried to get this approved for a minimally invasive lumbar decompression or Vertiflex procedure. His insurance has denied this patient for these 2 interventions. We will try to send another appeal for these 2 procedures. We will order an updated MRI of his lumbar spine. Additionally, patient reports pain from his right upper buttock that radiates to his right leg. Right SI
== END ==
PROVIDERS: Visit Provider Student in an Organized Health Care Education/Training Program
DX: M51.16 Intervertebral disc disorders with radiculopathy, lumbar region (principal); M48.062 Spinal stenosis, lumbar region with neurogenic claudication; M46.1 Sacroiliitis, not elsewhere classified
CPT/HCPCS: 99212; G0463

== ENCOUNTER → 2021-10-18 08:11 | Outpatient (CLI) | payer OTHER, SELFPAY ==
--- NOTE | 2021-10-18 08:18 | MR_ITS ---
FINAL REPORT CLINICAL HISTORY: BACK PAIN FINDINGS: Multiplanar MR imaging of the lumbar spine was performed without contrast. On the sagittal T2-weighted images, abnormal decreased signal is seen at L4-5 and L5-S1. The vertebrae are of normal height. The vertebral alignment is normal. L1-2: There is no significant canal stenosis or neural foraminal narrowing. L2-3: There is no significant canal stenosis or neural foraminal narrowing. L3-4: There is no significant canal stenosis or neural foraminal narrowing. L4-5: Mild left paracentral disc protrusion is present with mild compromise of the left side of the spinal canal. There is mild bilateral neural foraminal narrowing. L5-S1: Mild diffuse disc bulge is present. There is a small midline disc protrusion with mild spinal canal compromise. IMPRESSION: Disc bulges at L4-5 and L5-S1 with mild compromise of the spinal canal as detailed above. Reviewed, Interpreted and Dictated by Blue Villanueva MD Transcribed by April Steve Authenticated by Blue Villanueva MD on 10/18/2021 11:38:31 AM [facility]
== END ==
PROVIDERS: PCP Family Medicine; Visit Provider Student in an Organized Health Care Education/Training Program
DX: M54.50 Low back pain, unspecified (principal)
CPT/HCPCS: 72148; 76376

== ENCOUNTER 2021-10-21 09:32 | Day surgery (SDC) | payer OTHER, SELFPAY ==
[2021-10-21 09:34] VITALS: BP 126/80; PULSE 74; PULSE 77; RESP 20; O2SAT 95; O2SAT 96
[2021-10-21 09:42] VITALS: BP 113/75; PULSE 73; RESP 18; TEMP 36.3; O2SAT 98; BMI 25.8
--- NOTE | 2021-10-21 10:03 | P.PCN_ITS ---
- Procedure Date: 10/21/21 Time: 10:13 Anesthesiologist:: Grover Deal CRNA Complications:: None Pre-procedure Diagnosis:: Right sacroiliitis. Right trochanteric bursitis. Post-procedure Diagnosis:: Same Indications for Procedure:: This patient is a very pleasant 59-year-old white male that we have been seeing for quite some time in our clinic over the years. Most recently patient has right SI joint pain. Also right trochanteric bursa pain. He has extreme point tenderness over each area. He responded well in the past to right SI joint injection as well as right trochanteric bursa injection. We will take care of this for him today. Procedure Details:: Procedure: Right trochanteric bursa injection under fluoroscopy We then moved to the right trochanteric bursa.~ C-arm fluoroscopy was used to view the left greater trochanter.~ The skin and subcutaneous tissues overlying the right greater trochanter were anesthetized using lidocaine, 1.5% and a 25- gauge needle.~ After this, a 22-gauge spinal needle was inserted and advanced until it contacted the right greater trochanter.~ Dye was injected and good spread was seen throughout the right trochanteric bursa. After this, approximately 5 mL of bupivacaine, 0.25% and Depo-Medrol, 40 mg was incrementally injected into the right right trochanteric bursa.~ The patient tolerated the procedure well with no complications. Procedure: Right sacroliliac joint injection under fluoroscopy Informed consent was obtained and the risk and benefits of the procedure were explained to the patient.~ The patient was taken to the procedure room and noninvasive monitors were placed including noninvasive blood pressure cuff and pulse oximeter.~ The patient was placed prone on the procedure table.~ The~ r ight hip was cleansed using Betadine as a cleansing solution.~ C-arm fluorosocpy was used to view the right SI joint.~ The skin and subcutaneous tissues were anesthetized using Lidocaine 1.5% and a 25-gauge needle.~ After this, a 22-gauge spinal needle was inserted under fluoroscopic guidance into the inferior aspect of the right SI joint.~ Omnipaque dye was injected and a good spread was seen throughout the joint.~ After this, approximately 5 mL of bupivacaine 0.25% and Depo-Medrol 40 mg was incrementally injected into the sacroiliac joint.~ The patient tolerated the procedure well with no complications.~ The patient was observed in the Pain Clinic, then discharged home neurologically intact.~ Plan and Disposition:: Patient was reevaluated 15 minutes post procedure. He reports significant improvement terms of right posterior hip pain as well as right lateral leg pain over the trochanteric bursa. Patient will follow up with us in the clinic
[2021-10-21 10:05] VITALS: BP 125/84; PULSE 73; RESP 20; O2SAT 99
== END 2021-10-21 10:06 | disposition home or self-care (01) ==
LOC: SC.PAINP 09:33
PROVIDERS: PCP Family Medicine; Visit Provider Nurse Anesthetist, Certified Registered
DX: M46.1 Sacroiliitis, not elsewhere classified (principal); M70.61 Trochanteric bursitis, right hip; M48.062 Spinal stenosis, lumbar region with neurogenic claudication; K21.9 Gastro-esophageal reflux disease without esophagitis
CPT/HCPCS: 20610; 27096; 77002; G0260; J1040

== ENCOUNTER → 2021-10-31 11:10 | Outpatient (POV) | payer MEDICARE, SELFPAY ==
--- NOTE | 2021-10-31 12:15 | P.CONS_ITS ---
[facility] Pain Management SOAP Note Subjective:: This patient is a pleasant 59-year-old white male that returns our clinic today to follow-up regarding his right SI joint injection and new lumbar MRI. Patient states his right hip and leg radicular symptoms are essentially gone following the right SI joint injection. Patient states he had a little pain the night after the injection. However, after this time he was essentially pain-free in the right posterior hip as well as right leg radicular symptoms to the foot. In regards to his recent MRI patient has disc bulge at L4-5 and L5-S1 with compromise of the spinal canal specifically at the above set levels. Patient is continuing to wait for approval from insurance for MILD seizure in the lumbar spine. Patient states his low back pain is constant, dull, aching. However, his main complaint is bilateral hip and leg radicular symptoms at times. Objective:: Patient is awake alert oriented x3. In no acute distress. Flexion-extension lumbar spine somewhat guarded secondary to pain. Deep tendon reflexes upper and lower extremities normal. Motor strength upper and lower extremities normal. There is no gross sensory deficit. Gait is normal. Assessment:: Degnerative disc disease lumbar spine. Lumbar spinal stenosis. Bilateral sacroiliitis. Plan:: Discussed in detail with the patient regarding a proposed mild procedure. We will continue to appeal to the insurance company regarding this approval. [facility] History Medical History: Reports:: Gastroesophageal Reflux Disease(GERD), MRSA Denies:: Cancer, Diabetes Mellitus Type 1, Diabetes Mellitus Type 2, Internal Pacemaker, Seizures *Have you ever received a pneumonia vaccine?: No *Have you received a flu vaccine this season?: Yes Other Medical History: Denies: Blood Transfusion Reaction Laterality Cases: Left: Arthroscopy Knee, Right: Arthroscopy Shoulder, Other Other Surgeries: Yes: Hernia Repair (inguinal). No: Pacemaker Amputation: No Fractures: No - *Social History Smoking Status: Never smoker Alcohol Intake: never Alcohol Intake Frequency:: a few times a month *Occupational Status:: disabled Housing: house Household Members: spouse *Travel in the last 8 weeks: Inside the [place] Family Hx:: No significant family history
[2021-10-31 12:17] VITALS: BP 113/82; PULSE 73; RESP 18; TEMP 36.1; O2SAT 98; BMI 26.6
== END ==
PROVIDERS: Visit Provider Nurse Anesthetist, Certified Registered
DX: M51.36 Other intervertebral disc degeneration, lumbar region (principal); M48.061 Spinal stenosis, lumbar region without neurogenic claudication; M46.1 Sacroiliitis, not elsewhere classified
CPT/HCPCS: 99212; G0463

== ENCOUNTER → 2021-11-24 09:06 | Outpatient (POV) | payer OTHER, SELFPAY ==
[2021-11-24 09:38] VITALS: BP 115/78; PULSE 83; RESP 18; TEMP 36.4; O2SAT 96; BMI 29.3
--- NOTE | 2021-11-24 11:27 | HMH.PAINSOAP ---
[facility] Pain Management SOAP Note Subjective:: Patient is a pleasant 59-year-old male who presents today for follow-up. Patient is currently being treated for degenerative disc disease of lumbar spine with lumbar radiculopathy symptoms, lumbar spinal stenosis with neurogenic claudication, bilateral sacroiliitis. We have been managing this patient with injective therapy and other modalities, refer to interval history below. More recently, patient had a right sided SI injection that provided 3 weeks of relief. Patient presents today because he has been having increasing right SI pain in the last couple weeks. He wants to know if he can get a repeat injection. 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 He has been having issues with with prolonged walking because of the pain. He rates his pain today as 4 out of 10. He was taking tramadol 50mg BID. He has been taking one in the morning and rarely takes the afternoon. He says that it causes him to have restlessness. He is needing refills on this. We have prescribed this medication in the past. Another provider prescribed this medication in July per his ELVIN. We will refill this today for one month until he gets his injection. Elvin [id number], MEQ 0. Interval History: 1. Work related injury, on worker's comp. SCS implanted in 2016, significant relief. Developed infection, hospitalized for several weeks from sepsis, had to explanted. 2. Tried multiple LESI with minimal relief, MBB, lumbar RFA. Found to be good candidate for MILD after epidurogram. Pending Insurance approval. Been denied twice. 3. Have done PT and chiro in the last year. 4. Tried Right SI injection in October 2021, significant relief 3 weeks. Review of Systems: General: No recent weight changes, no fever, no sleep disturbances Respiratory: No cough, no shortness of air, no recurring pulmonary infections Cardiovascular/peripheral vascular: No chest pain, no palpitations, no edema, no shortness of breath Gastrointestinal: No new onset incontinence, normal bowel movements reported Genitourinary: No new onset incontinence Musculoskeletal: Low back pain, right upper buttock pain Psychiatric: [Normal mood/affect] Neurological: [Denies weakness in extremities], [denies balance issues] Objective:: Physical Exam: General: Alert and oriented x3, no acute distress, pleasant and cooperative Lungs: Respirations even and unlabored, symmetrical chest expansion Eyes: PERRL Musculoskeletal: Flexion and extension of lumbar [spine] somewhat guarded secondary to pain, [antalgic gait noted]; right SI is positive for TED, [place]'s, [place]'s, [place]'s, compression, and distraction. Neurological: Speech clear, no gross sensory deficit Assessment:: Degenerative disc disease of lumbar spine with lumbar radiculopathy symptoms Spinal stenosis with neurogenic claudication Sacroiliitis Plan:: Patient has been having worsening right upper buttock pain that radiates down to the right leg. Patient has tried and failed conservative therapies such as physical therapy, oral medications, chiropractic adjustments, and home exercise for greater than 6 weeks. We will schedule the patient for a right SI injection. Risk and benefits have been discussed with the patient. Patient would like to proceed with the procedure. Will prescribe this patient's tramadol in the past. I will refill the patient's tramadol 50 mg twice a day as needed. We will refill this patient for a month until his injection. This might be a one-time refill. We are still waiting on the insurance for approval on his minimally invasive lumbar decompression procedure. Patient has been instructed to contact the clinic with any concerns before the next appointment. Dr. Shetty has reviewed this note and agrees with this plan of care. This note was dictated using voice recognition software and make contain errors or omissions. [facility] History Medical History: Reports:: Gastro
== END ==
PROVIDERS: Visit Provider Student in an Organized Health Care Education/Training Program
DX: M51.16 Intervertebral disc disorders with radiculopathy, lumbar region (principal); M48.062 Spinal stenosis, lumbar region with neurogenic claudication; M46.1 Sacroiliitis, not elsewhere classified
CPT/HCPCS: 99212; G0463

== ENCOUNTER 2021-12-09 09:41 | Day surgery (SDC) | payer OTHER, SELFPAY ==
[2021-12-09 10:02] VITALS: BP 114/73; PULSE 79; RESP 20; TEMP 36.9; O2SAT 98; BMI 25.1
[2021-12-09 10:27] VITALS: BP 110/79; PULSE 72; RESP 18; O2SAT 98
[2021-12-09 10:28] VITALS: BP 119/89; PULSE 73; RESP 18; O2SAT 99
[2021-12-09 10:44] VITALS: BP 113/78; PULSE 65; RESP 20; O2SAT 99
--- NOTE | 2021-12-09 10:45 | HMH.PMPROC ---
- Procedure Date: 12/09/21 Time: 10:45 Anesthesiologist:: Tyler Shetty MD Complications:: None Pre-procedure Diagnosis:: Sacroiliitis Post-procedure Diagnosis:: Same Indications for Procedure:: Patient is a pleasant 61-year-old white male who we are treating for sacroiliitis he has increasing pain over the right SI joint. His previous right SI joint injection gave him complete relief of his pain he was 90 to 100% better from was 3 weeks. His pain is now returned. Most of his pain is over the right SI joint radiating into his anterior part of his right leg. He is tender over the right SI joint. Is positive Rito's test on the right side. Is positive Adriana test on the right side. Is positive SI joint compression test on the right side. We will add on right SI joint injection today to see how much relief he gets and for how long. He may be a candidate for right SI joint stabilization in the future. Procedure Details:: Right SI joint injection under fluoroscopy Informed consent was obtained and the risks and benefits of the procedure was going to the patient. Patient was taken to the procedure room. Patient was placed prone on the procedure table. The right hip was prepped using ChloraPrep. The skin and subcutaneous tissues were anesthetized using lidocaine. I placed a 22-gauge spinal needle into the inferior aspect of the right SI joint. Needle placement was confirmed with dye. After this we injected 5 mL bupivacaine 0.25% and Depo-Medrol 40 mg into the right SI joint. The patient tolerated the procedure well with no complication. Plan and Disposition:: We will follow-up with him in 2 weeks. Will reevaluate symptoms at that time. We will assess efficacy of this injection. If he does get 90 to 100% relief of his pain symptoms for only a short period of time he may be a candidate for right SI joint stabilization with omnia product
== END 2021-12-09 10:45 | disposition home or self-care (01) ==
LOC: SC.PAINP 09:43
PROVIDERS: Visit Provider Anesthesiology
DX: M46.1 Sacroiliitis, not elsewhere classified (principal)
CPT/HCPCS: 27096; G0260; J1040; Q9966

== ENCOUNTER → 2022-05-29 14:29 | Outpatient (POV) | payer OTHER, SELFPAY ==
[2022-05-29 15:35] VITALS: BP 109/70; PULSE 75; RESP 20; O2SAT 98; BMI 24.5
--- NOTE | 2022-05-29 16:18 | EXP.PAIN.SOA ---
[facility] Pain Management SOAP Note Subjective:: Patient is a pleasant 62-year-old male that presents today for follow-up. We are currently treating the patient for degenerative disc disease of lumbar spine with lumbar radiculopathy symptoms, lumbar spinal stenosis with neurogenic claudication, bilateral sacroiliitis. Today he rates his pain a 4 out of 10. Patient states his pain is all in his low back that radiates down his bilateral lower extremities with the right being the worst side. Patient denies any new trauma or injury. Patient denies any change in location or type of pain he experiences. Patient states this pain has been going on for years and progressively worsened over time. Patient has had multiple SI injections in the past that provided significant relief however only lasted short-term. Patient previously had an ablation to this site as well however it continued to not provide prolonged relief. Patient states the most relief he got lasted for 5 weeks following an SI RFA. Patient states this is a throbbing, constant, dull achy sensation that is worse with increased activity. Patient states it affects his ability to perform activities of daily living. 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 Patient cannot even seed cone picker his granddaughter due to the pain. Patient is not able to perform activities of daily living such as doing the dishes, cooking or cleaning. Patient frequently had multiple injections in quick succession in the past and states he thinks this caused additional problems of GI ulcers. Patient states all his pain is related to an injury from February 2013. He is currently managed with tramadol 50 mg twice a day. Patient states this does help with his pain symptoms however it frequently causes him to be wide-awake and can cause sleeping issues. Patient has tried [id number] Tylenol and ibuprofen with minimal improvement. He is also used heat and ice and topicals such as Voltaren, Biofreeze and a foam cream with minimal relief. Patient has been to a chiropractor and physical therapy in the past however this did not provide any improvement and frequently caused worsening pain. His Santiago is [phone]. It has been reviewed and appropriate. Interval History: Work related injury, on worker's comp. SCS implanted in 2017, significant relief. Developed infection, hospitalized for several weeks from sepsis, had to explanted. Tried multiple LESI with minimal relief, MBB, lumbar RFA. Found to be good candidate for MILD after epidurogram. Pending Insurance approval. Been denied twice. Injection history: Right SI injection 12/09/2021 Right SI, right bursa injection in October 2021, significant relief 3 weeks LESI L4-L5 09/09/2021 Lumbar RFA L3-L4, L4-5, L5-S1 03/12/2020 Lumbar RFA L3-L4, L4-L5, L5-S1 02/27/2020 Medial branch block lumbar L3-L4, L4-L5, L5-S1 01/23/2020 Medial branch block lumbar L3-L4, L4-L5, L5-S1 12/05/2019 Medial branch block lumbar L3-L4, L4-L5, L5-S1 01/11/2018 Medial branch block lumbar L3-L4, L4-L5, L5-S1 08/10/2017 Review of Systems: General: No recent weight changes, no fever, no sleep disturbances Respiratory: No cough, no shortness of air, no recurring pulmonary infections Cardiovascular/peripheral vascular: No chest pain, no palpitations, no edema, no shortness of breath Gastrointestinal: No new onset incontinence, normal bowel movements reported Genitourinary: No new onset incontinence Musculoskeletal: Low back pain, bilateral leg pain Psychiatric: [Normal mood/affect] Neurological: [Denies weakness in extremities], [denies balance issues] Objective:: Physical Exam: General: Alert and oriented x3, no acute distress, pleasant and cooperative Lungs: Respirations even and unlabored, symmetrical chest expansion Eyes: PERRL Musculoskeletal: Flexion and extension of lumbar [spine] somewhat guarded secondary to pain, [antalgic gait noted]. Extreme point tenderness along right SI and positive
== END | disposition home or self-care (01) ==
PROVIDERS: Visit Provider Nurse Practitioner Family
DX: M51.16 Intervertebral disc disorders with radiculopathy, lumbar region (principal); M48.062 Spinal stenosis, lumbar region with neurogenic claudication; M46.1 Sacroiliitis, not elsewhere classified
CPT/HCPCS: 99212; G0463

== ENCOUNTER → 2022-06-16 13:16 | Outpatient (POV) | payer OTHER, SELFPAY ==
[2022-06-16 13:26] VITALS: BP 108/73; PULSE 69; RESP 18; TEMP 36.8; O2SAT 99; BMI 25.1
--- NOTE | 2022-06-16 15:57 | A.OFFVIS_ITS ---
[facility] Pain Management SOAP Note Subjective:: This patient is a pleasant 62-year-old white male who we have been treating for sacroiliitis. He also has degenerative disc disease of lumbar spine with lumbar radiculopathy symptoms and lumbar spinal stenosis. He has had multiple injections including RF ablation. Most of his pain seems to be coming from his left SI joint. He is tender over his left SI joint. He does have a positive Rito's test on the left side. He has a positive [place]'s test on left side. He has positive SI joint compression test on left side. He has benefited greatly from diagnostic left SI joint injections which have given him 80 to 90% relief in pain symptoms for several weeks. He is here to discuss SI joint stabilization. Objective:: Alert and oriented x3 no acute distress. Patient does have an antalgic gait. Motor strength of the lower extremities is 5/5. There is no gross sensory deficit. Tenderness over left SI joint. Is positive Rito's test left side. He has a positive Adriana test on left side. Is positive SI joint compression test on left side. He has positive distraction test on the left side. Assessment:: Chronic sacroiliitis Plan:: This patient has had 2 diagnostic left SI joint injections which have given him up to 80 to 90% relief for several weeks. I do believe he would be a good candidate for a left SI joint stabilization. He is scheduled for EGD to assess hiatal hernia at the end of the month. We will wait until after this procedure to do his left SI joint stabilization. We will plan on doing this in the middle of July. This will be with the [employer] system [facility] Disclaimer: The information contained in this section may have been updated after the patient was seen, as this information can be updated by other users. Medical History (Updated 06/16/22 @ 13:29 by Stella Tong RN) GERD (gastroesophageal reflux disease) Inguinal hernia MRSA (methicillin resistant Staphylococcus aureus) Surgical History (Updated 06/16/22 @ 13:29 by Stella Tong RN) H/O arthroscopy of left knee History of arthroscopy of shoulder Family History (Updated 06/16/22 @ 13:29 by Stella Tong RN) No significant family history Social History Smoking Status: Never smoker alcohol intake: never current occupational status: disabled Travel in the last 8 weeks: None household members: spouse housing: house current occupation: self current occupational exposures/hazards: No caffeine: Yes
== END ==
PROVIDERS: PCP Pediatrics; Visit Provider Anesthesiology
DX: M46.1 Sacroiliitis, not elsewhere classified (principal)
CPT/HCPCS: 99212; G0463

== ENCOUNTER → 2022-07-13 12:40 | Outpatient (CLI) | payer OTHER, SELFPAY ==
[2022-07-13 15:16] LABS: Basophils # 0.1 K/mm3 (0-0.2); Basophils % 1.1 % (0.1-2.0); Eosinophils # 0.2 K/mm3 (0.0-0.4); Eosinophils % 3.6 % (0.1-12.0); Hematocrit 47.9 % (42.0-52.0); Hemoglobin 15.4 g/dL (14.1-18.0); Lymphocytes # 1.8 K/mm3 (0.7-4.5); Lymphocytes % 32.5 % (10-50); Mean Corpuscular HGB Conc 32.2 g/dL (31.8-35.4); Mean Corpuscular Hemoglobin 29.5 pg (27.0-31.2); Mean Corpuscular Volume 91.8 fl (80-94); Mean Platelet Volume 8.5 fl (7.4-10.4); Monocytes # 0.5 K/mm3 (0.1-1.0); Monocytes % 8.4 % (1.7-9.3); Neutrophils % 54.4 % (37.0-80.0); Platelet Count 218 K/mm3 (142-424); Red Blood Count 5.22 M/mm3 (4.60-6.20); Red Cell Distribution Width 12.6 % (11.5-17.5); White Blood Count 5.5 K/mm3 (4.8-10.8)
[2022-07-13 17:22] LABS: Chloride 103 mmol/L (98-107); Sodium 140 mmol/L (136-145)
[2022-07-13 17:23] LABS: Potassium 4.5 mmoL/L (3.5-5.1)
[2022-07-13 17:25] LABS: Blood Urea Nitrogen 13 mg/dl (9-20); Estimated Glomerular Filt Rate 56 ml/min (>60); GFR (African American) 67 ML/MIN (>60)
[2022-07-13 17:26] LABS: Anion Gap 14.5 mEq/L (5-15); Carbon Dioxide 27 mmol/L (22.0-30.0); Glucose 77 mg/dl (74-100)
== END ==
PROVIDERS: Visit Provider Anesthesiology
DX: M46.1 Sacroiliitis, not elsewhere classified (principal)
CPT/HCPCS: 36415; 80048; 85025

== ENCOUNTER 2022-07-14 07:24 | Day surgery (SDC) | payer OTHER, SELFPAY ==
[2022-07-11 13:20] VITALS: BMI 23.2
[2022-07-14] VITALS (11 sets, daily range): BP systolic 102–122; BP diastolic 63–77; PULSE 74–92; RESP 16–18; TEMP 36.1–36.5; O2SAT 95–100
--- NOTE | 2022-07-14 12:25 | P.PN_ITS ---
[facility] Disclaimer: The information contained in this section may have been updated after the patient was seen, as this information can be updated by other users. Medical History GERD (gastroesophageal reflux disease) Inguinal hernia MRSA (methicillin resistant Staphylococcus aureus) Surgical History H/O arthroscopy of left knee History of arthroscopy of shoulder Family History Other Family history of cancer No significant family history Social History Smoking Status: Never smoker alcohol intake: current substance use type: denies use current occupational status: disabled Travel in the last 8 weeks: None household members: spouse housing: house current occupation: self current occupational exposures/hazards: No caffeine: Yes [facility] Anesthesia Checklist Patient Identification Patient Identification: Arm Band Structural Data Admitted From: Home Planned Operative Procedure/s: Sacroiliac Joint Stabilization under Fluoroscopy Consent for Planned Operative Procedure(s) Verified: Yes Verified Documents: Surgical Consent and History and Physical NPO Status Verified Time NPO: 00:00 Additional verifications Anesthesia Reactions: No Hx Blood Transfusions: No Blood Transfusion Reaction: No Airway Assessment C-Spine Mobility Assessed: Yes TMJ Mobility Assessed: Yes Dentition: Good Dentition Neurological Assessment Level of Consciousness: Awake and Alert Anesthesia Plan Anesthesia Risk discussed: Yes Anesthesia Plan: Verified ASA Class: II Anesthesia Type: MAC
--- NOTE | 2022-07-14 12:26 | EXP.ANES.I ---
[facility] Anesthesia Record Part I Anesthesia Record I Intake, IV Amount: 800 Estimated blood loss (mL): 5 Urine output (mL): 0 Blood Products used (#): none Blood Pressure: 110/63 SaO2: 99 Pulse Rate: 86 Respiratory Rate: 16 Temperature: 97.2 F Patient is:: Drowsy and Stable Stable to PACU at:: 11:45
--- NOTE | 2022-07-14 12:31 | P.PNANES_ITS ---
[facility] Anesthesia Record Part II Anesthesia Record Part II Discharge Time: 12:15 Destination: Surgical Day Care (OP Surgery) PACU nurse assessment reviewed?: Yes Patient Condition:: Good Anesthesia Complications:: None Swallowing reflex intact?: Yes Cyanosis?: No Blood Pressure: 113/70 Pulse Rate: 82 Temperature: 97.5 F Mental Status: Alert & Oriented Pain level:: 0 Nausea and/or vomitting:: None Intake, IV Amount: 0
--- NOTE | 2022-07-14 13:58 | P.OP_ITS ---
Date of procedure: 07/14/22 Pre-op Diagnosis:: Chronic sacroiliitis Post-op Diagnosis:: Same Procedure performed:: Left SI joint stabilization with 2 screws and TransLoc system Surgeon:: Tyler Shetty MD FUEL DOCK ATTENDANT:: Jeremy Junior Anesthesia: GETA Estimated blood loss (mL): 5 Clinical Note:: This patient is a pleasant 62-year-old white male who we have been treating for chronic sacroiliitis. He has had several diagnostic SI joint injections which have given him 80 to 90% relief for several weeks. He is doing very well with these injections however they are not long-lasting. His worst pain is on the left side. He presents for left SI joint stabilization with 2 screws today. This will be with the Transloc system Operative findings:: None Operative note:: Informed consent was obtained and the risk and benefits of the procedure were explained to the patient. The patient was taken to the operating room and placed prone on the procedure table. He was prepped and draped in sterile fashion. A sacral outlet view of the sacrum was obtained. The PSIS was palpated and marked off. The lines were drawn on the skin and aligned overlying the S1 and S2 neural foramen. An approximate 1 cm incision was made just lateral to the PSIS between the S1 and S2 markings. A Jamshidi needle was placed through the incision in a cranial to caudal and lateral to the medial trajectory using a mallet under intermittent fluoroscopy to a stop depth. Trocar depth was confirmed under a sacral inlet view to a depth that did not breach the anterior sacral cortex. The guidewire was placed through the trocar and the needle removed over the wire. The ilium and sacral cortex were drilled and decorticated under live fluoroscopy to the 40 mm stop depth with no advancement of the guidewire noted. A 40 mm length translock screw was selected. The selected screw implant was placed onto the garbage collector driver and screwed into the created channel until it was flush with the ilium transfixing and compressing the joint. Next a second trancelike screw implant was placed in a similar fashion approximately 8 to 10 mm inferior to the first implant. The incision was irrigated and subcutaneous tissue was closed with 2-0 Vicryl followed by 4-0 nylon. The patient tolerated the procedure well with no complications. He was taken recovery in stable condition. Patient was discharged home neurologic intact with good relief of pain symptoms. He was discharged with Bactrim DS twice a day for 5 days. Plan and disposition: We will follow-up with this patient in 1 week for wound check and in 2 weeks for suture removal. If he has any problems or questions she is to call us back in the pain clinic. Condition: stable Disposition: PACU Complications:: None
== END 2022-07-14 13:06 | disposition home or self-care (01) ==
PROVIDERS: Visit Provider Anesthesiology
PROC: (CPT 27279; principal; 2022-07-14 09:30)
DX: M46.1 Sacroiliitis, not elsewhere classified (principal); Z79.899 Other long term (current) drug therapy
CPT/HCPCS: 27279; C1713; J2405; J2710; J3370

== ENCOUNTER → 2022-07-26 11:29 | Outpatient (POV) | payer OTHER, SELFPAY ==
--- NOTE | 2022-07-26 12:02 | EXP.PAIN.SOA ---
[facility] Pain Management SOAP Note Subjective:: Patient is a pleasant 62-year-old male who presents today for follow-up of left SI stabilization with corner lock system on 07/14/2022. We are currently treating the patient for degenerative disc disease of lumbar spine with lumbar radiculopathy symptoms, lumbar spinal stenosis, chronic sacroiliitis. Today he rates his pain a 1 out of 10. Patient states that he has had at least 70% improvement following this procedure. Patient denies any complications since. Patient does state he continues to have some burning and tingling in his right foot and some dull pain around his low back. Patient states he has been able to increase his activity with decreased pain. Patient is currently managed with tramadol 50 mg twice a day. Patient denies any side effects from this medication. His Santiago is [id number]. Its been reviewed and appropriate. Review of Systems: General: No recent weight changes, no fever, no sleep disturbances Respiratory: No cough, no shortness of air, no recurring pulmonary infections Cardiovascular/peripheral vascular: No chest pain, no palpitations, no edema, no shortness of breath Gastrointestinal: No new onset incontinence, normal bowel movements reported Genitourinary: No new onset incontinence Musculoskeletal: Low back pain Psychiatric: [Normal mood/affect] Neurological: [Denies weakness in extremities], [denies balance issues] Objective:: Physical Exam: General: Alert and oriented x3, no acute distress, pleasant and cooperative Lungs: Respirations even and unlabored, symmetrical chest expansion Eyes: PERRL Musculoskeletal: Flexion and extension of lumbar [spine] somewhat guarded secondary to pain, [antalgic gait noted] Neurological: Speech clear, no gross sensory deficit Assessment:: Degenerative disc disease of lumbar spine with lumbar radiculopathy symptoms, lumbar spinal stenosis, chronic sacroiliitis Plan:: Patient has had significant improvement following his left SI stabilization procedure. I will order the patient a compounding cream at today's visit. I have also counseled the patient to continue his postoperative restrictions of minimal bending, twisting, lifting, no submerging in water until his incision site is fully healed and no NSAID use for the full 6 weeks. Patient's incision site is clean, dry, well approximated and did have the sutures removed at today's visit with Steri-Strips applied. Patient will return to clinic in 2 weeks for reevaluation of symptoms and follow-up. Patient has been instructed to contact the clinic with any concerns before the next appointment. Dr. Shetty has reviewed this note and agrees with this plan of care. This note was dictated using voice recognition software and make contain errors or omissions. [facility] Disclaimer: The information contained in this section may have been updated after the patient was seen, as this information can be updated by other users. Medical History GERD (gastroesophageal reflux disease) Inguinal hernia MRSA (methicillin resistant Staphylococcus aureus) Surgical History H/O arthroscopy of left knee History of arthroscopy of shoulder Family History Other Family history of cancer No significant family history Social History (Updated 07/14/22 @ 12:26 by Jeremy Junior CRNA) Smoking Status: Never smoker alcohol intake: current substance use type: denies use current occupational status: disabled Travel in the last 8 weeks: None household members: spouse housing: house current occupation: self current occupational exposures/hazards: No caffeine: Yes
[2022-07-26 12:34] VITALS: BP 108/72; PULSE 78; RESP 18; O2SAT 98; BMI 23.9
== END ==
PROVIDERS: Visit Provider Nurse Practitioner Family
DX: M51.16 Intervertebral disc disorders with radiculopathy, lumbar region (principal); M48.061 Spinal stenosis, lumbar region without neurogenic claudication; M46.1 Sacroiliitis, not elsewhere classified
CPT/HCPCS: 99212; 99213; G0463

== ENCOUNTER → 2022-08-09 09:20 | Outpatient (POV) | payer OTHER, SELFPAY ==
--- NOTE | 2022-08-09 09:41 | EXP.PAIN.SOA ---
[facility] Pain Management SOAP Note Subjective:: Patient is a pleasant 62-year-old male who presents today for follow-up. We are currently treating the patient for degenerative disc disease of lumbar spine with lumbar radiculopathy symptoms, lumbar spinal stenosis, chronic sacroiliitis, status post left SI stabilization procedure. Today he rates his pain a 3 out of 10. Patient states he continues to have significant improvement following this transloc stabilization procedure on 07/14/2022. Patient states he is experiencing worsening numbness in his right foot. Patient states this has been ongoing however it has progressed from our last visit. Patient states this is in 4-5 toes along the right side and describes it as a constant burning/tingling sensation that is worse at night. Patient does state that he has some cramping in his lower legs as well. Patient has been on gabapentin in the past and states he did not do well with it. Patient is prescribed compounding cream that he states does help with some of this. He is also managed with tramadol 50 mg twice a day. Patient denies any side effects from this medication. He states this medication does help manage his pain symptoms. He is requesting a refill at today's visit. His Santiago is [id number]. Its been reviewed and appropriate. Review of Systems: General: No recent weight changes, no fever, no sleep disturbances Respiratory: No cough, no shortness of air, no recurring pulmonary infections Cardiovascular/peripheral vascular: No chest pain, no palpitations, no edema, no shortness of breath Gastrointestinal: No new onset incontinence, normal bowel movements reported Genitourinary: No new onset incontinence Musculoskeletal: Right foot burning/tingling Psychiatric: [Normal mood/affect] Neurological: [Denies weakness in extremities], [denies balance issues] Objective:: Physical Exam: General: Alert and oriented x3, no acute distress, pleasant and cooperative Lungs: Respirations even and unlabored, symmetrical chest expansion Eyes: PERRL Musculoskeletal: Flexion and extension of lumbar [spine] somewhat guarded secondary to pain, [antalgic gait noted] Neurological: Speech clear, no gross sensory deficit Skin: Incision site clean, dry, well approximated with no erythema noted Assessment:: Degenerative disc disease of lumbar spine with lumbar radiculopathy symptoms, lumbar spinal stenosis, chronic sacroiliitis Plan:: Patient continues to have significant improvement following his left SI stabilization procedure however he is experiencing additional numbness in 4-5 toes along the right foot. I will send in a prescription of ropinirole 0.25 mg at bedtime and provide a 14-day supply of this medication. I will also send in a refill of his tramadol 50 mg twice daily for a 1 month supply. I have counseled the patient to continue his postop restrictions for 2 more weeks. Patient will return to clinic in 1 month for reevaluation of symptoms, medication refill and follow-up. Patient has been instructed to contact the clinic with any concerns before the next appointment. Dr. Shetty has reviewed this note and agrees with this plan of care. This note was dictated using voice recognition software and make contain errors or omissions. [facility] Disclaimer: The information contained in this section may have been updated after the patient was seen, as this information can be updated by other users. Medical History GERD (gastroesophageal reflux disease) Inguinal hernia MRSA (methicillin resistant Staphylococcus aureus) Surgical History H/O arthroscopy of left knee History of arthroscopy of shoulder Family History Other Family history of cancer No significant family history Social History (Updated 07/14/22 @ 12:26 by Jeremy Junior CRNA) Smoking Status: Never smoke
[2022-08-09 09:53] VITALS: BP 97/77; PULSE 87; RESP 18; O2SAT 98; BMI 24.0
== END | disposition home or self-care (01) ==
PROVIDERS: Visit Provider Nurse Practitioner Family
DX: M51.16 Intervertebral disc disorders with radiculopathy, lumbar region (principal); M46.1 Sacroiliitis, not elsewhere classified; M48.061 Spinal stenosis, lumbar region without neurogenic claudication
CPT/HCPCS: 99212; G0463

== ENCOUNTER → 2022-08-28 10:15 | Outpatient (POV) | payer OTHER, SELFPAY ==
[2022-08-28 10:27] VITALS: BP 95/74; PULSE 87; RESP 18; O2SAT 97; BMI 24.3
--- NOTE | 2022-08-28 11:11 | EXP.PAIN.SOA ---
[facility] Pain Management SOAP Note Subjective:: Patient is a pleasant 62-year-old male who presents today for follow-up and medication refill. We are currently treating the patient for degenerative disc disease of lumbar spine with lumbar radiculopathy symptoms, lumbar spinal stenosis, chronic sacroiliitis, status post left SI stabilization procedure. Today he rates his pain a 3 out of 10. Patient denies any new trauma or injury. Patient denies any change location or type of pain he experiences. Patient is now off of his 6 weeks postop restrictions following his transloc SI stabilization procedure that occurred on 07/14/2022. Patient states that he has had decreased numbness now in his right foot. Patient states he does feel overall better on a day-to-day basis. Patient rates at least 50 to 60% improvement following this procedure. Patient does state he still occasionally has low back pain. At our last visit we did prescribe ropinirole 0.25 mg at bedtime however he states this did cause him to be wired all night and he could not get to sleep. Patient has been prescribed Zofran in the past for some nausea. Patient denies any side effects from this medication. He is also prescribed tramadol 50 mg twice a day. Patient states this does help with his overall pain symptoms. He is requesting a refill at today's visit. His Santiago is [id number]. Its been reviewed and appropriate. Review of Systems: General: No recent weight changes, no fever, no sleep disturbances Respiratory: No cough, no shortness of air, no recurring pulmonary infections Cardiovascular/peripheral vascular: No chest pain, no palpitations, no edema, no shortness of breath Gastrointestinal: No new onset incontinence, normal bowel movements reported Genitourinary: No new onset incontinence Musculoskeletal: Low back pain Psychiatric: [Normal mood/affect] Neurological: [Denies weakness in extremities], [denies balance issues] Objective:: Physical Exam: General: Alert and oriented x3, no acute distress, pleasant and cooperative Lungs: Respirations even and unlabored, symmetrical chest expansion Eyes: PERRL Musculoskeletal: Flexion and extension of lumbar [spine] somewhat guarded secondary to pain, [antalgic gait noted] Neurological: Speech clear, no gross sensory deficit Assessment:: Degenerative disc disease of lumbar spine with lumbar radiculopathy symptoms, lumbar spinal stenosis, chronic sacroiliitis, status post left SI stabilization procedure Plan:: Patient continues to have significant improvement following his left SI stabilization procedure. I have counseled the patient that he can resume his regular activities however no NSAIDs for an additional 6 weeks and no high intensity exercises such as running. I will refill his tramadol 50 mg twice a day and Zofran 4 mg and provide a 1 month supply of this medication. Patient will return to clinic in 1 month for reevaluation of symptoms, medication refill and follow-up. Patient has been instructed to contact the clinic with any concerns before the next appointment. Dr. Shetty has reviewed this note and agrees with this plan of care. This note was dictated using voice recognition software and make contain errors or omissions. [facility] Disclaimer: The information contained in this section may have been updated after the patient was seen, as this information can be updated by other users. Medical History GERD (gastroesophageal reflux disease) Inguinal hernia MRSA (methicillin resistant Staphylococcus aureus) Surgical History H/O arthroscopy of left knee History of arthroscopy of shoulder Family History Other Family history of cancer No significant family history Social History (Updated 07/14/22 @ 12:26 by Jeremy Junior CRNA) Smoking Status: Never smoker alcohol intake: current sub
== END | disposition home or self-care (01) ==
PROVIDERS: Visit Provider Nurse Practitioner Family
DX: M51.16 Intervertebral disc disorders with radiculopathy, lumbar region (principal); M46.1 Sacroiliitis, not elsewhere classified; M48.061 Spinal stenosis, lumbar region without neurogenic claudication
CPT/HCPCS: 99212; G0463

== ENCOUNTER → 2022-11-06 10:56 | Outpatient (POV) | payer OTHER, SELFPAY ==
--- NOTE | 2022-11-06 11:48 | EXP.PAIN.SOA ---
[facility] Pain Management SOAP Note Subjective:: Patient is a pleasant 62-year-old male who presents today for medication refill and follow-up. We are currently treating the patient for degenerative disc disease of lumbar spine with lumbar radiculopathy symptoms, lumbar spinal stenosis, chronic sacroiliitis, status post left SI stabilization procedure. Today he rates his pain a 3 out of 10. Patient denies any new trauma or injury. Patient denies any change location or type of pain he experiences. He states he will occasionally have right foot pain that radiates to his big toe. He does states it is worse at night and describes it as a burning sensation. Patient has tried compounding cream at this location and states it does help some however only temporary. Patient did previously have an SI stabilization procedure back in July and he states he continues to do well with this. He does state that he typically cannot tolerate the lawnmower due to the vibration but overall has had improvement. Patient does believe that some of his symptoms are more arthritis related. Patient is currently managed with tramadol 50 mg twice a day. Patient denies any side effects from this medication. His Santiago is [id number]. Its been reviewed and appropriate. Review of Systems: General: No recent weight changes, no fever, no sleep disturbances Respiratory: No cough, no shortness of air, no recurring pulmonary infections Cardiovascular/peripheral vascular: No chest pain, no palpitations, no edema, no shortness of breath Gastrointestinal: No new onset incontinence, normal bowel movements reported Genitourinary: No new onset incontinence Musculoskeletal: Low back pain Psychiatric: [Normal mood/affect] Neurological: [Denies weakness in extremities], [denies balance issues] Objective:: Physical Exam: General: Alert and oriented x3, no acute distress, pleasant and cooperative Lungs: Respirations even and unlabored, symmetrical chest expansion Eyes: PERRL Musculoskeletal: Flexion and extension of lumbar [spine] somewhat guarded secondary to pain, [antalgic gait noted] Neurological: Speech clear, no gross sensory deficit Assessment:: Degenerative disc disease of lumbar spine with lumbar radiculopathy symptoms, lumbar spinal stenosis, chronic sacroiliitis, status post left SI stabilization procedure, right foot pain Plan:: Patient is doing well with his current medication regimen. I will refill his tramadol 50 mg twice a day and provide a 3-month supply of this medication. I have discussed with the patient that if his right foot pain continues to be additional source of pain and interferes with his ability to perform activities of daily living we could do additional injections such as a sympathetic nerve block. At this time the patient would like to wait. He will return to clinic in 3 months for reevaluation of symptoms and medication refill. Patient has been instructed to contact the clinic with any concerns before the next appointment. Dr. Shetty has reviewed this note and agrees with this plan of care. This note was dictated using voice recognition software and make contain errors or omissions. [facility] Disclaimer: The information contained in this section may have been updated after the patient was seen, as this information can be updated by other users. Medical History GERD (gastroesophageal reflux disease) Inguinal hernia MRSA (methicillin resistant Staphylococcus aureus) Surgical History H/O arthroscopy of left knee History of arthroscopy of shoulder Family History Other Family history of cancer No significant family history Social History (Updated 07/14/22 @ 12:26 by Jeremy Junior CRNA) Smoking Status: Never smoker alcohol intake: current substance use type: denies use current occupational status: retir
[2022-11-06 12:34] VITALS: BP 101/74; PULSE 86; RESP 18; O2SAT 97; BMI 24.7
== END | disposition home or self-care (01) ==
PROVIDERS: Visit Provider Nurse Practitioner Family
DX: M51.16 Intervertebral disc disorders with radiculopathy, lumbar region (principal); M48.00 Spinal stenosis, site unspecified; M46.1 Sacroiliitis, not elsewhere classified; M79.671 Pain in right foot
CPT/HCPCS: 99212; G0463

== ENCOUNTER → 2022-11-06 11:48 | Outpatient (CLI) | payer OTHER, SELFPAY ==
[2022-11-06 13:05] LABS: Benzodiazepines Screen,Urine Negative ng/ml (<200)
[2022-11-06 13:06] LABS: Amphetamine/Metha Screen,Urine Negative ng/ml (<1000); Barbiturates Screen,Urine Negative ng/ml (<200)
[2022-11-06 13:07] LABS: Cannabinoid Screen,Urine Positive ng/ml (<50)
[2022-11-06 13:08] LABS: Cocaine Screen,Urine Negative ng/ml (<300); Methadone Screen,Urine Negative ng/ml (<300)
[2022-11-06 13:09] LABS: Opiate Screen,Urine Negative ng/ml (<300)
[2022-11-06 13:10] LABS: Phencyclidine Screen,Urine Negative ng/ml (<25)
[2022-11-14 12:12] LABS: Cannabinoid Positive (.); Carboxy THC (GC/MS) 40 ng/mL (Cutoff=10); Opiates Negative (Cutoff=100)
== END ==
PROVIDERS: PCP Family Medicine; Visit Provider Nurse Practitioner Family
DX: Z79.891 Long term (current) use of opiate analgesic (principal)
CPT/HCPCS: 80305; 80349; 80361; 80365; G0480

== ENCOUNTER → 2023-02-12 10:19 | Outpatient (POV) | payer OTHER, SELFPAY ==
[2023-02-12 10:31] VITALS: BP 128/71; PULSE 92; RESP 18; O2SAT 96; BMI 25.1
--- NOTE | 2023-02-12 10:46 | EXP.PAIN.SOA ---
[facility] Pain Management SOAP Note Subjective:: Phil is a pleasant 62-year-old male who presents today for follow-up and medication refill. We are currently treating the patient for degenerative disc disease of lumbar spine with lumbar radiculopathy symptoms, lumbar spondylosis, chronic sacroiliitis, status post stabilization procedure. Today he rates his pain a 5 out of 10. Patient denies any new trauma or injury. Patient does state that about 3 weeks ago he did feel like he started having worsening pain in and around his left hip and left SI. Patient states that he does work constantly whether moving around or mowing however not had any falls. Patient does state that he feels like his pain has changed to a dull chronic pain. He states he has been having to increase medications and added a Tylenol arthritis along with his tramadol to help relieve some of his pains. Patient is currently managed on tramadol 50 mg twice a day. He denies any side effects from this medication. Patient has tried pregabalin and gabapentin in the past and was not able to tolerate these. Patient does state that he continues to have right foot tingling and burning that is worse at night. Patient is currently managed with compounding cream however he he states he has not tried this on his foot. His Santiago is [id number]. Its been reviewed and appropriate. Review of Systems: General: No recent weight changes, no fever, no sleep disturbances Respiratory: No cough, no shortness of air, no recurring pulmonary infections Cardiovascular/peripheral vascular: No chest pain, no palpitations, no edema, no shortness of breath Gastrointestinal: No new onset incontinence, normal bowel movements reported Genitourinary: No new onset incontinence Musculoskeletal: Low back pain, left hip, left SI pain Psychiatric: [Normal mood/affect] Neurological: [Denies weakness in extremities], [denies balance issues] Objective:: Physical Exam: General: Alert and oriented x3, no acute distress, pleasant and cooperative Lungs: Respirations even and unlabored, symmetrical chest expansion Eyes: PERRL Musculoskeletal: Flexion and extension of lumbar [spine] somewhat guarded secondary to pain, [antalgic gait noted] Neurological: Speech clear, no gross sensory deficit Assessment:: Degenerative disc disease of lumbar spine with lumbar radiculopathy symptoms, lumbar spinal stenosis, chronic sacroiliitis, status post left SI stabilization procedure Plan:: Patient is experiencing worsening pain in his low back along the left side and into his left SI and left hip. I have discussed with the patient that I will order x-ray imaging of his lumbar spine, left hip and left SI to rule out possible screw movement from his previous SI stabilization procedure. I will also order the patient Skelaxin 800 mg twice daily and provide a 2-week supply of this medication and send in a refill of his tramadol 50 mg and change it to 3 times daily and provide a 3-month supply of this medications. I have counseled the patient to try the compounding cream on his right foot and see if it does help with his neuropathy symptoms. Patient will return to clinic in 2 weeks for reevaluation of symptoms and plan of care. Patient has been instructed to contact the clinic with any concerns before the next appointment. Dr. Shetty has reviewed this note and agrees with this plan of care. This note was dictated using voice recognition software and make contain errors or omissions. [facility] Disclaimer: The information contained in this section may have been updated after the patient was seen, as this information can be updated by other users. Medical History GERD (gastroesophageal reflux disease) Inguinal hernia MRSA (methicillin resistant Staphylococcus aureus) Surgical History H/O arthroscopy of left knee History of arthroscopy of shoulder Fa
== END | disposition home or self-care (01) ==
PROVIDERS: Visit Provider Nurse Practitioner Family
DX: M51.16 Intervertebral disc disorders with radiculopathy, lumbar region (principal); M47.26 Other spondylosis with radiculopathy, lumbar region; M46.1 Sacroiliitis, not elsewhere classified; G89.29 Other chronic pain
CPT/HCPCS: 99212; G0463

== ENCOUNTER → 2023-02-12 10:57 | Outpatient (CLI) | payer OTHER, MEDICARE, SELFPAY ==
--- NOTE | 2023-02-12 11:03 | XR_ITS ---
FINAL REPORT CLINICAL HISTORY: LT LOWER BACK PAIN, checking on screws COMPARISON: None FINDINGS: SACROILIAC JOINTS SERIES Three views were obtained. There is no acute fracture or dislocation. The joint spaces appear normal. The visualized bony structures are well aligned. No soft tissue abnormality is seen. 2 screws are seen in the left sacral ala. It is uncertain if these extend across the left SI joint. IMPRESSION: No acute bony abnormality. [address] may be helpful for further evaluation. Reviewed, Interpreted and Dictated by Yosef Gustafson III, MD Transcribed by Emmie Paige Authenticated and [facility]
--- NOTE | 2023-02-12 11:03 | XR_ITS ---
FINAL REPORT CLINICAL HISTORY: LT HIP PAIN, checking to see if screws moved COMPARISON: None FINDINGS: LEFT HIP: Two views of the left hip demonstrate no acute fracture or dislocation. There is mild degenerative change in both hips in the lower lumbar spine. The visualized bony structures are well aligned. No soft tissue abnormality is seen. 2 screws are seen at the left sacral ala. It is uncertain if these extend across the left SI joint. IMPRESSION: No acute bony abnormality. [address] may be helpful for further evaluation. Reviewed, Interpreted and Dictated by Yosef Gustafson III, MD Transcribed by Emmie Paige Authenticated and [facility]
--- NOTE | 2023-02-12 11:03 | XR_ITS ---
FINAL REPORT CLINICAL HISTORY: LOW BACKPAIN, check screws COMPARISON: None FINDINGS: 6 views of the lumbar spine were obtained. There is no evidence of fracture or dislocation. The vertebral alignment is normal. There is mild degenerative change with small osteophytes. 2 screws are seen in the left sacral ala. It is uncertain if these extend across the left SI joint. No paraspinous soft tissue abnormalities identified. IMPRESSION: No acute bony abnormality. [address] may be helpful for further evaluation. Reviewed, Interpreted and Dictated by Yosef Gustafson III, MD Transcribed by Emmie Paige Authenticated and [facility]
== END ==
PROVIDERS: PCP Family Medicine; Visit Provider Anesthesiology
DX: M54.50 Low back pain, unspecified (principal); M53.3 Sacrococcygeal disorders, not elsewhere classified; M25.552 Pain in left hip
CPT/HCPCS: 72110; 72202; 73502

== ENCOUNTER → 2023-02-26 10:23 | Outpatient (POV) | payer OTHER, SELFPAY ==
--- NOTE | 2023-02-26 11:07 | EXP.PAIN.SOA ---
[facility] Pain Management SOAP Note Subjective:: Patient is a pleasant 62-year-old male who presents today for follow-up of x-ray imaging. We are currently treating the patient for degenerative disc disease of lumbar spine with lumbar radiculopathy symptoms, lumbar spondylosis, chronic sacroiliitis, status post left SI stabilization procedure. Today he rates his pain an 3 out of 10. Patient denies any new trauma or injury. He does state from our last visit his pain has gotten much better however the pain can still be bad with certain positioning or stepping in a wrong direction. Patient does state that he still has trouble mowing the lawn due to the vibration is irritating to his pain. Patient is currently using Tylenol arthritis in combination with his tramadol 50 mg 3 times daily. He denies any side effects from this medication. He also continues to use the compounding cream on his right foot. His Santiago is [id number]. Its been reviewed and appropriate. Review of Systems: General: No recent weight changes, no fever, no sleep disturbances Respiratory: No cough, no shortness of air, no recurring pulmonary infections Cardiovascular/peripheral vascular: No chest pain, no palpitations, no edema, no shortness of breath Gastrointestinal: No new onset incontinence, normal bowel movements reported Genitourinary: No new onset incontinence Musculoskeletal: Low back pain, left sciatica Psychiatric: [Normal mood/affect] Neurological: [Denies weakness in extremities], [denies balance issues] Objective:: Physical Exam: General: Alert and oriented x3, no acute distress, pleasant and cooperative Lungs: Respirations even and unlabored, symmetrical chest expansion Eyes: PERRL Musculoskeletal: Flexion and extension of lumbar [spine] somewhat guarded secondary to pain, [antalgic gait noted] Neurological: Speech clear, no gross sensory deficit Assessment:: Degenerative disc disease of lumbar spine with lumbar radiculopathy symptoms, lumbar spondylosis, sacroiliitis, status post left SI stabilization procedure Plan:: Patient continues to experience pain along his low back at the left side with left sciatica. Patient's x-ray imaging had no acute findings but did show 2 screws intact in the left sacral ala. I have discussed with the patient that it may be beneficial having additional imaging such as a CT. Risk and benefits were explained to the patient and he would like to proceed forward with this plan of care. I will order a CT without contrast of his lumbar spine/SI related to his low back pain with left sciatica. Patient did just recently have his tramadol refilled and does not require any additional refills at this time. Patient will return to clinic in 1 month following imaging for reevaluation of symptoms and plan of care. Patient has been instructed to contact the clinic with any concerns before the next appointment. Dr. Shetty has reviewed this note and agrees with this plan of care. This note was dictated using voice recognition software and make contain errors or omissions. [facility] Disclaimer: The information contained in this section may have been updated after the patient was seen, as this information can be updated by other users. Medical History GERD (gastroesophageal reflux disease) Inguinal hernia MRSA (methicillin resistant Staphylococcus aureus) Surgical History H/O arthroscopy of left knee History of arthroscopy of shoulder Family History Other Family history of cancer No significant family history Social History (Updated 07/14/22 @ 12:26 by Jeremy Junior CRNA) Smoking Status: Never smoker alcohol intake: current substance use type: denies use current occupational status: retired Travel in the last 8 weeks: None household members: spouse housing: house current occupation:
[2023-02-26 12:06] VITALS: BP 102/72; PULSE 85; RESP 18; O2SAT 97; BMI 25.1
== END ==
PROVIDERS: Visit Provider Nurse Practitioner Family
DX: M51.16 Intervertebral disc disorders with radiculopathy, lumbar region (principal); M47.26 Other spondylosis with radiculopathy, lumbar region; M46.1 Sacroiliitis, not elsewhere classified; Z98.1 Arthrodesis status
CPT/HCPCS: 99212; G0463

== ENCOUNTER → 2023-03-16 13:26 | Outpatient (CLI) | payer OTHER, SELFPAY ==
--- NOTE | 2023-03-16 13:32 | CT_ITS ---
FINAL REPORT TECHNIQUE: Axial imaging of the lumbar spine was obtained without contrast. Sagittal and coronal reformatted images were also obtained and reviewed. This study was performed with techniques to keep radiation doses as low as reasonably achievable (ALARA). Individualized dose reduction techniques using automated exposure control or adjustment of mA and/or kV according to the patient's size were employed. CLINICAL HISTORY: LBP W/SCIATICA COMPARISON: MRI of the lumbar spine dated 10/18/2021 FINDINGS: There is no fracture. The vertebral alignment is normal. There is mild disc space narrowing at the L4-5 and L5-S1 levels..There is no evidence of significant central canal stenosis. L1-L2: No evidence of central canal stenosis or neural foraminal narrowing. L2-L3: No evidence of central canal stenosis or neural foraminal narrowing. L3-L4: An annular bulge is present. No evidence of central canal stenosis or neural foraminal narrowing. L4-L5: An annular bulge is present with a small central disc protrusion and mild bilateral neural foraminal narrowing. L5-S1: An annular bulge is present with mild bilateral neural foraminal narrowing. IMPRESSION: Degenerative change at the L4-5 and L5-S1 levels as described. No acute bony abnormality of the lumbar spine is noted. Reviewed, Interpreted and Dictated by Yosef Gustafson III, MD Transcribed by Sierra Najera Authenticated and [facility]
== END ==
PROVIDERS: PCP Family Medicine; Visit Provider Nurse Practitioner Family
DX: M54.40 Lumbago with sciatica, unspecified side (principal)
CPT/HCPCS: 72131

== ENCOUNTER → 2023-03-22 09:38 | Outpatient (POV) | payer OTHER, SELFPAY ==
--- NOTE | 2023-03-22 10:16 | A.OFFVIS_ITS ---
[facility] Pain Management SOAP Note Subjective:: Patient is a pleasant 62-year-old male who presents today for CT follow-up. We are currently treating the patient for degenerative disc disease of lumbar spine with lumbar radiculopathy symptoms, lumbar spondylosis, chronic sacroiliitis, status post left SI stabilization procedure. Today he rates his pain a 2 out of 10. Patient denies any new trauma or injury. He states he does continue to have some pain around his left SI that he does notice more frequently with working out in the gym or the other week he climbed over a fence and had a pulling sensation. Patient does want to still make sure that the screws have not moved. Patient does use Tylenol arthritis in combination with tramadol 50 mg 3 times a day. He denies any side effects from this medication. He states this does help along with the compounding cream. His Santiago is [id number]. Its been reviewed and appropriate. Review of Systems: General: No recent weight changes, no fever, no sleep disturbances Respiratory: No cough, no shortness of air, no recurring pulmonary infections Cardiovascular/peripheral vascular: No chest pain, no palpitations, no edema, no shortness of breath Gastrointestinal: No new onset incontinence, normal bowel movements reported Genitourinary: No new onset incontinence Musculoskeletal: Low back pain, left SI pain Psychiatric: [Normal mood/affect] Neurological: [Denies weakness in extremities], [denies balance issues] Objective:: Physical Exam: General: Alert and oriented x3, no acute distress, pleasant and cooperative Lungs: Respirations even and unlabored, symmetrical chest expansion Eyes: PERRL Musculoskeletal: Flexion and extension of lumbar [spine] somewhat guarded secondary to pain, [antalgic gait noted] Neurological: Speech clear, no gross sensory deficit Assessment:: Degenerative disc disease of lumbar spine with lumbar radiculopathy symptoms, lumbar spondylosis, chronic sacroiliitis, status post left SI stabilization procedure Plan:: I will refill the patient's tramadol 50 mg 3 times a day and provide a 1 month supply of this medication. Patient's lumbar CT had no acute findings. I will order a CT without contrast of his left hip/SI region to confirm the screws have not moved. Patient will return to clinic in 1 month for reevaluation of symptoms and plan of care. Patient has been instructed to contact the clinic with any concerns before the next appointment. Dr. Shetty has reviewed this note and agrees with this plan of care. This note was dictated using voice recognition software and make contain errors or omissions. [facility] Disclaimer: The information contained in this section may have been updated after the patient was seen, as this information can be updated by other users. Medical History GERD (gastroesophageal reflux disease) Inguinal hernia MRSA (methicillin resistant Staphylococcus aureus) Surgical History H/O arthroscopy of left knee History of arthroscopy of shoulder Family History Other Family history of cancer No significant family history Social History (Updated 07/14/22 @ 12:26 by Jeremy Junior CRNA) Smoking Status: Never smoker alcohol intake: current substance use type: denies use current occupational status: retired Travel in the last 8 weeks: None household members: spouse housing: house current occupation: self current occupational exposures/hazards: No caffeine: Yes
[2023-03-22 11:59] VITALS: BP 112/81; PULSE 78; RESP 18; O2SAT 98; BMI 26.2
== END ==
PROVIDERS: Visit Provider Nurse Practitioner Family
DX: M51.16 Intervertebral disc disorders with radiculopathy, lumbar region (principal); M47.26 Other spondylosis with radiculopathy, lumbar region; M46.1 Sacroiliitis, not elsewhere classified; Z98.1 Arthrodesis status
CPT/HCPCS: 99212; G0463

== ENCOUNTER → 2023-04-17 12:45 | Outpatient (CLI) | payer OTHER, SELFPAY ==
--- NOTE | 2023-04-17 12:52 | CT_ITS ---
FINAL REPORT CLINICAL HISTORY: Left hip and left sacroiliac joint pain FINDINGS: CT LEFT HIP WITHOUT CONTRAST TECHNIQUE: Axial, and reformatted images were obtained of the left hip. This study was performed with techniques to keep radiation doses as low as reasonably achievable, (ALARA). Individualized dose reduction techniques using automated exposure control or adjustment of mA and/or kV according to the patient's size were employed. FINDINGS: There are postoperative changes from left sacroiliac joint fusion with 2 screws present. There is no acute fracture or dislocation. No bony mass is identified. There is no abnormal fluid collection. Musculature is intact. IMPRESSION: No acute bony abnormality. Reviewed, Interpreted and Dictated by Yosef Gustafson III, MD Transcribed by Rosangela Gonzalez Authenticated and [facility]
== END ==
PROVIDERS: PCP Family Medicine; Visit Provider Nurse Practitioner Family
DX: M25.552 Pain in left hip (principal)
CPT/HCPCS: 73700

== ENCOUNTER → 2023-04-20 09:47 | Outpatient (POV) | payer OTHER, SELFPAY ==
[2023-04-20 10:00] VITALS: BP 123/79; PULSE 81; RESP 20; BMI 25.1
--- NOTE | 2023-04-20 10:24 | EXP.PAIN.SOA ---
[facility] Pain Management SOAP Note Subjective:: This patient is a very pleasant to 62-year-old man who comes our clinic today for follow-up visit and medication refills. We are currently managing his pain as result of degenerative disc lumbar spine multilevel. Lumbar radiculopathy. Lumbar spondylosis. Chronic sacroiliitis. Also, status post left SI joint stabilization procedure September 2022. He rates his pain to 3/10 today. Patient is taking tramadol 50 mg 1 p.o. 3 times daily. Patient states the medication does help in terms of controlling his pain for the most part. He does not report any side effects or complications regarding the medication. At his last visit on 03/22/2023 he articulate he felt as though potentially the left sacroiliac stabilization procedure had moved. He was sent for CT of the left hip. We reviewed those findings today. Everything seems intact and normal without any movement of hardware. His Santiago #[id number] is been reviewed and appropriate. Objective:: 1. L4-5: Minimal bulging disc with facet and ligamentum hypertrophy with mild bilateral lateral recess narrowing left greater than right and mild left-sided foraminal narrowing. 2. L5-S1: Mild facet and ligamentum hypertrophic change with mild bilateral foraminal narrowing left greater than Assessment:: Degenerative disc lumbar spine multilevels. Lumbar radiculopathy. Chronic sacroiliitis. Lumbar spondylosis. Plan:: We will refill the patient's pain medication. Tramadol 50 mg 1 p.o. 3 times daily. He will return to see us in 1 month. [facility] Disclaimer: The information contained in this section may have been updated after the patient was seen, as this information can be updated by other users. Medical History GERD (gastroesophageal reflux disease) Inguinal hernia MRSA (methicillin resistant Staphylococcus aureus) Surgical History H/O arthroscopy of left knee History of arthroscopy of shoulder Family History Other Family history of cancer No significant family history Social History (Updated 07/14/22 @ 12:26 by Jeremy Junior CRNA) Smoking Status: Never smoker alcohol intake: current substance use type: denies use current occupational status: other Travel in the last 8 weeks: None household members: spouse housing: house current occupation: self current occupational exposures/hazards: No caffeine: Yes
== END ==
PROVIDERS: Visit Provider Nurse Practitioner Family
DX: M51.16 Intervertebral disc disorders with radiculopathy, lumbar region (principal); M47.26 Other spondylosis with radiculopathy, lumbar region; M46.1 Sacroiliitis, not elsewhere classified; G89.29 Other chronic pain
CPT/HCPCS: 99212; G0463

== ENCOUNTER 2023-09-17 09:27 | Outpatient (POV) | payer OTHER, SELFPAY ==
[2023-09-17 09:40] VITALS: BP 126/75; PULSE 82; RESP 18; BMI 32.8
--- NOTE | 2023-09-17 10:04 | EXP.PAIN.SOA ---
[facility] Pain Management SOAP Note Subjective:: Patient is a pleasant 62-year-old male who presents today for follow-up. We are currently treating the patient for degenerative disc disease of lumbar spine with lumbar radiculopathy symptoms, lumbar spondylosis, chronic sacroiliitis, status post left SI stabilization procedure. Today he rates his pain a 4 out of 10. Patient denies any new trauma or injury. He states that he is still experiencing pain in and around his low back that is an aching, throbbing sensation that does go down his left leg into his thigh however he does also state that he has numbness and tingling into his bilateral feet. He states that his previous SI related pain is still doing much better than what it had prior. He does state that he frequently has to change positions due to the current pain and going down into his left leg. Patient states it is aggravated with increased activity or ambulation. He states the pain is interfering with his ability perform activities of daily living such as cooking and cleaning. Patient also states from our last visit he continues to have trouble with his tramadol prescription. Patient states that it was approved through his [employer] however it supposed to go through [employer] insurance. He states that he is not sure whether or not if this is a pharmacy related issue or if our office needs to send a new authorization in. He is currently managed with tramadol 50 mg 3 times a day and compounded cream. He denies any side effects from this medication. His Santiago has been reviewed and is appropriate. Review of Systems: General: No recent weight changes, no fever, no sleep disturbances Respiratory: No cough, no shortness of air, no recurring pulmonary infections Cardiovascular/peripheral vascular: No chest pain, no palpitations, no edema, no shortness of breath Gastrointestinal: No new onset incontinence, normal bowel movements reported Genitourinary: No new onset incontinence Musculoskeletal: Low back pain, left leg pain, bilateral feet numbness tingling Psychiatric: [Normal mood/affect] Neurological: [Denies weakness in extremities], [denies balance issues] Objective:: Physical Exam: General: Alert and oriented x3, no acute distress, pleasant and cooperative Lungs: Respirations even and unlabored, symmetrical chest expansion Eyes: PERRL Musculoskeletal: Flexion and extension of lumbar [spine] somewhat guarded secondary to pain, [antalgic gait noted] Neurological: Speech clear, no gross sensory deficit Assessment:: Degenerative disc disease of lumbar spine with lumbar radiculopathy symptoms, lumbar spondylosis, chronic sacroiliitis, status post left SI stabilization procedure Plan:: DiscussedPatient is experiencing worsening pain with limited range of motion of his lumbar spine. The patient that he may benefit from a lumbar epidural steroid injection. Risk and benefits were discussed with patient and he would like to proceed forward with this plan of care. Patient is not on any blood thinners. I will also send in a 3-month supply of his tramadol 50 mg 3 times a day. 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 Patient will be scheduled for an LESI L4-L5 under fluoroscopy. Patient has been instructed to contact the clinic with any concerns before the next appointment. Dr. Shetty has reviewed this note and agrees with this plan of care. This note was dictated using voice recognition software and make contain errors or omissions. [facility] Disclaimer: The information contained in this section may have been updated after the patient was seen, as this information can be updated by other users. Medical History Inguinal hernia MRSA (methicillin resistant Staphylococcus aureus) GERD (gastroesophageal reflux disease) Surgical History History of arthroscopy of shoulder H/O arthroscopy of left knee Family History Other Family history of cancer No significant family history Social History (Updated 07/14/22 @ 12:26 by Jeremy Junior CRNA) Smoking Status: Never smoker alcohol intake: current substance use type: denies use current occupational status: other Travel in the last 8 weeks: None household members: spouse housing: house current occupation: self current occupational exposures/hazards: No caffeine: Yes
== END 2023-09-17 23:59 | disposition home or self-care (01) ==
PROVIDERS: Visit Provider Nurse Practitioner Family
DX: M51.16 Intervertebral disc disorders with radiculopathy, lumbar region (principal); M47.26 Other spondylosis with radiculopathy, lumbar region; M46.1 Sacroiliitis, not elsewhere classified; G89.29 Other chronic pain
CPT/HCPCS: 99212; G0463

== ENCOUNTER 2023-10-12 08:58 | Day surgery (SDC) | payer OTHER, SELFPAY ==
[2023-10-12 09:10] VITALS: BP 127/83; PULSE 61; RESP 16; TEMP 36.4; O2SAT 100; BMI 26.4
[2023-10-12] MEDS: methylPREDNISolone ACETATE 80MG/ML VIAL 80 MG (09:20)
[2023-10-12 09:21] VITALS: BP 110/73; PULSE 79; RESP 18; O2SAT 98
[2023-10-12 09:22] VITALS: BP 110/73; PULSE 79; RESP 18; O2SAT 98
[2023-10-12 09:25] VITALS: BP 139/85; PULSE 77; RESP 18; O2SAT 100
--- NOTE | 2023-10-12 09:27 | EXP.PAIN.PRO ---
Procedure Date: 10/12/23 Time: 09:10 Anesthesiologist:: Grover Deal CRNA Complications:: None Pre-procedure Diagnosis:: Degenerative disc lumbar spine multilevels. Lumbar radiculopathy. Lumbar postlaminectomy syndrome Post-procedure Diagnosis:: Same. Indications for Procedure:: Patient is a very pleasant 63-year-old male comes our clinic today for L4-5 lumbar epidural steroid injection. Patient has had significant improvement with his overall low back right hip and leg radiculopathy symptoms with previous injections at the same level. He rates his pain today 10. Procedure Details:: Procedure: Lumbar epidural steroid injection under fluoroscopy Informed consent was obtained and the risks and benefits of the procedure were explained to the patient. The patient was taken to the procedure room and noninvasive monitors placed, including noninvasive blood pressure cuff and pulse oximeter. The back was viewed using C-arm Fluoroscopy and prepped using Chloraprep as a cleansing solution and the L4-L5 interspace was palpated. Skin and subcutaneous tissues were anesthetized using lidocaine 1.5% and a 25-gauge needle. After this, an 18-gauge Touhy epidural needle was placed into the L4-L5 interspace and advanced using fluoroscopic guidance and loss of resistance to air until the epidural space was encountered. After confirmation of needle placement in the epidural space, with dye, a solution containing normal saline, 3 mL and Depo-Medrol 80 mg were incrementally injected into the lumbar epidural space. The patient tolerated the procedure well with no complications. The patient was observed in the Pain Clinic and then discharged home neurologically intact. Plan and Disposition:: Patient was discharged without incident.
== END 2023-10-12 09:25 | disposition home or self-care (01) ==
PROVIDERS: Visit Provider Nurse Anesthetist, Certified Registered
DX: M51.16 Intervertebral disc disorders with radiculopathy, lumbar region (principal); M96.1 Postlaminectomy syndrome, not elsewhere classified
CPT/HCPCS: 62323; J1010

== ENCOUNTER 2023-11-21 08:48 | Outpatient (POV) | payer OTHER, MEDICARE, SELFPAY ==
[2023-11-21 09:07] VITALS: BP 101/80; PULSE 85; RESP 18; O2SAT 97; BMI 26.7
--- NOTE | 2023-11-21 09:31 | EXP.PAIN.SOA ---
[facility] Pain Management SOAP Note Subjective:: Patient is a pleasant 63-year-old male who presents today for follow-up of lumbar epidural steroid injection L4-L5 on 10/12/2023. Today he rates his pain a 4 out of 10. Patient states that he has had at least 50 to 60% improvement following this injection and feels like it is still providing improvement overall. He does state that he still continues to experience some numbness and tingling down his right extremity as well as an occasional pain into his left thigh however that is not consistent and is random when it comes up. He still feels like on days that he works excessively he has increased pain. Patient did previously have a left SI stabilization procedure and feels like the daily grind of working will occasionally aggravate the pain on that side. He states he often has to change positions while sleeping and that sometimes this can affect his overall sleep. Patient does state that the tramadol does still help however he finds that if he takes the third tablet that he frequently is up longer during the night. Patient does state that he typically takes the tramadol 1 in the morning and 1 at lunchtime and does much better with this combination. Patient was previously implanted with the stimulator in the past however it ended up becoming infected and had to be removed. Patient does state that he is interested in options looking for the future improvement however he does have a lot of reservation regarding doing anything more than the injections due to the history of sepsis. Patient does continue to use his compounded cream. He denies any side effects to his tramadol or his cream. His Santiago has been reviewed and is appropriate. Review of Systems: General: No recent weight changes, no fever, no sleep disturbances Respiratory: No cough, no shortness of air, no recurring pulmonary infections Cardiovascular/peripheral vascular: No chest pain, no palpitations, no edema, no shortness of breath Gastrointestinal: No new onset incontinence, normal bowel movements reported Genitourinary: No new onset incontinence Musculoskeletal: Low back pain, right leg pain Psychiatric: [Normal mood/affect] Neurological: [Denies weakness in extremities], [denies balance issues] Objective:: Physical Exam: General: Alert and oriented x3, no acute distress, pleasant and cooperative Lungs: Respirations even and unlabored, symmetrical chest expansion Eyes: PERRL Musculoskeletal: Flexion and extension of lumbar [spine] somewhat guarded secondary to pain, [antalgic gait noted] Neurological: Speech clear, no gross sensory deficit Assessment:: Degenerative disc disease of lumbar spine with lumbar radiculopathy symptoms, lumbar spondylosis, chronic sacroiliitis, status post left SI stabilization procedure Plan:: Patient has had significant improvement following his lumbar epidural however he does still have pain more prominent into his right leg. I have discussed with patient in future that he may benefit from a transforaminal epidural steroid injection. Risk and benefits were discussed with the patient and we will follow-up with this at future visits. I have also discussed with the patient that at any point in time in the future he may be a beneficial candidate of a pump or relook into the idea of his stimulator however this is completely up to him. I will refill his tramadol and make it twice a day and provide a 3-month supply of this medication. Patient will return to clinic in 1 month for reevaluation of symptoms and plan of care. Patient has been instructed to contact the clinic with any concerns before the next appointment. Dr. Shetty has reviewed this note and agrees with this plan of care. This note was dictated using voice recognition software and make contain errors or omissions. [facility] Disclaimer: The information contained in this section may have been updated after the patient was seen, as this information can be updated by other users. Medical History Inguinal hernia MRSA (methicillin resistant Staphylococcus aureus) GERD (gastroesophageal reflux disease) Surgical History History of arthroscopy of shoulder H/O arthroscopy of left knee Family History Other Family history of cancer No significant family history Social History Smoking Status: Never smoker alcohol intake: current alcohol intake frequency: a few times a month substance use type: denies use current occupational status: other Travel in the last 8 weeks: None household members: spouse housing: house current occupation: self current occupational exposures/hazards: No caffeine: Yes
== END 2023-11-21 23:59 | disposition home or self-care (01) ==
PROVIDERS: PCP Internal Medicine; Visit Provider Nurse Practitioner Family
DX: M51.16 Intervertebral disc disorders with radiculopathy, lumbar region (principal); M47.26 Other spondylosis with radiculopathy, lumbar region; M46.1 Sacroiliitis, not elsewhere classified; G89.29 Other chronic pain
CPT/HCPCS: 99212; G0463

== ENCOUNTER 2023-12-20 08:56 | Outpatient (POV) | payer OTHER, MEDICARE, SELFPAY ==
[2023-12-20 09:18] VITALS: BP 129/82; PULSE 85; RESP 16; O2SAT 97; BMI 26.1
--- NOTE | 2023-12-20 12:09 | EXP.PAIN.SOA ---
[facility] Pain Management SOAP Note Subjective:: Patient is a pleasant 63-year-old male who presents today for follow-up. Today he rates his pain a 6 out of 10. Patient states he continues to have chronic pain throughout his back and that it is just worsening over time. Patient states the pain interferes with his ability perform activities of daily living such as cooking and cleaning. 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 Patient is currently managed with tramadol 50 mg twice a day however feels like that it can only work so well. Patient states he cannot take this medication too late at night because and it keeps him awake. Patient has had SI stabilization procedure in the past and feels like that helped some however overall he still has the chronic pain. Patient states he would like to proceed forward with the pump trial that we talked about at his last visit. Patient has tried and failed conservative therapy including oral medication, heat and ice, topicals, prior physical therapy, continued at home exercising and stretching for longer than 6 weeks. Patient has had a spinal cord stimulator in the past however had to be removed due to infection. His Santiago has been reviewed and is appropriate. Review of Systems: General: No recent weight changes, no fever, no sleep disturbances Respiratory: No cough, no shortness of air, no recurring pulmonary infections Cardiovascular/peripheral vascular: No chest pain, no palpitations, no edema, no shortness of breath Gastrointestinal: No new onset incontinence, normal bowel movements reported Genitourinary: No new onset incontinence Musculoskeletal: Chronic low back pain Psychiatric: [Normal mood/affect] Neurological: [Denies weakness in extremities], [denies balance issues] Objective:: Physical Exam: General: Alert and oriented x3, no acute distress, pleasant and cooperative Lungs: Respirations even and unlabored, symmetrical chest expansion Eyes: PERRL Musculoskeletal: Flexion and extension of lumbar [spine] somewhat guarded secondary to pain, [antalgic gait noted] Neurological: Speech clear, no gross sensory deficit Assessment:: Degenerative disc disease of lumbar spine with lumbar radiculopathy symptoms, lumbar spondylosis, chronic sacroiliitis, status post left SI stabilization procedure, chronic pain syndrome Plan:: Continues to experience significant pain throughout his low back with limited range of motion. I have reviewed over the risk and benefits of the intrathecal pain pump trial and he would like to proceed forward with this plan of care. I will order the patient a psychological evaluation and if he is deemed an appropriate candidate we will proceed forward with a trial at a later date. Patient will return to clinic in 1 month following his psychological evaluation. Patient has been instructed to contact the clinic with any concerns before the next appointment. Dr. Shetty has reviewed this note and agrees with this plan of care. This note was dictated using voice recognition software and make contain errors or omissions. [facility] Disclaimer: The information contained in this section may have been updated after the patient was seen, as this information can be updated by other users. Medical History Inguinal hernia MRSA (methicillin resistant Staphylococcus aureus) GERD (gastroesophageal reflux disease) Surgical History History of arthroscopy of shoulder H/O arthroscopy of left knee Family History Other Family history of cancer No significant family history Social History Smoking Status: Never smoker alcohol intake: current alcohol intake frequency: a few times a month substance use type: denies use current occupational status: other Travel in the last 8 weeks: None household members: spouse housing: house current occupation: self current occupational exposures/hazards: No caffeine: Yes
== END 2023-12-20 23:59 | disposition home or self-care (01) ==
LOC: SC.PAIN 08:57
PROVIDERS: PCP Internal Medicine; Visit Provider Nurse Practitioner Family
DX: M51.16 Intervertebral disc disorders with radiculopathy, lumbar region (principal); M47.26 Other spondylosis with radiculopathy, lumbar region; M46.1 Sacroiliitis, not elsewhere classified; G89.4 Chronic pain syndrome
CPT/HCPCS: 99212; G0463